=== PATIENT | female | born 1990 | race Caucasian/White ===

== ENCOUNTER 2016-07-15 18:19 | Emergency (ER) | payer BC ==
[2016-07-15] MEDS ORDERED: ONDANSETRON 4MG/2ML VIAL (J2405) As Ordered ONE (21:10)
[2016-07-15] MEDS ORDERED: KETOROLAC 30 MG/ML VIAL (J1885) As Ordered ONE (21:10)
[2016-07-15 21:54] LABS: BASO % 0.3 % (0.0-1.0); EOS % 0.3 % (0.0-3.0); LARGE UNSTAINED CELL # 0.2 K/mm3 (0.0-0.4); LARGE UNSTAINED CELL % 1.6 % (0.0-4.0); LYMPH # 2.5 K/mm3 (1.5-6.5); LYMPH % 24.1 % (24.0-44.0); MEAN CORPUSCULAR HEMOGLOBIN 24.9 pg (27.0-33.0); MEAN CORPUSCULAR HGB CONC 31.5 g/dl (32.0-36.5); MONO # 0.4 K/mm3 (0.0-0.8); MONO % 4.3 % (0.0-5.0); NEUTROPHILS % 69.3 % (36.0-66.0); PLATELET COUNT, AUTOMATED 341 k/mm3 (150-450); RED CELL DISTRIBUTION WIDTH 13.3 % (11.5-14.5); WHITE BLOOD COUNT 10.2 K/mm3 (4.0-10.0)
[2016-07-15 23:18] LABS: ALBUMIN 3.8 GM/DL (3.2-5.2); ALBUMIN/GLOBULIN RATIO 1.09 (1.00-1.93); ALKALINE PHOSPHATASE 73 U/L (45-117); ALT/SGPT 44 U/L (12-78); AMYLASE 20 U/L (25-115); ANION GAP 8 MEQ/L (8-16); AST/SGOT 34 U/L (15-37); BILIRUBIN,DIRECT 0.1 MG/DL (0.0-0.2); BILIRUBIN,TOTAL 0.4 MG/DL (0.2-1.0); BLOOD UREA NITROGEN 16 MG/DL (7-18); CALCIUM LEVEL 8.9 MG/DL (8.5-10.1); CARBON DIOXIDE LEVEL 29 MEQ/L (21-32); CHLORIDE LEVEL 105 MEQ/L (98-107); CREATININE FOR GFR 0.61 MG/DL (0.55-1.02); GLOMERULAR FILTRATION RATE > 60.0 (>60); GLUCOSE, FASTING 77 MG/DL (70-105); POTASSIUM SERUM 4.4 MEQ/L (3.5-5.1); SODIUM LEVEL 142 MEQ/L (136-145); TOTAL PROTEIN 7.3 GM/DL (6.4-8.2)
--- NOTE | 2016-07-15 23:40 | REPUSA ---
HISTORY: Biliary colic TECHNIQUE: Right upper quadrant ultrasound. COMPARISON: December 31, 2015. ULTRASOUND RUQ: Liver: No intrahepatic ductal dilation. Diffusely increased hepatic echotexture consistent with fatty infiltration. Gallbladder: Two mobile gallstones are noted. Normally distended and without wall thickening at 1.4 m m. Common bile duct: Nondistended at 4 mm. Pancreas: Poorly visualized due to overlying bowel gas. Right kidney: 10.8 x 6.1 x 5.3 cm. No stones or hydronephrosis. Aorta: Normal caliber. Peritoneum: No free fluid. IMPRESSION: 1. Cholelithiasis without ultrasound evidence of cholecystitis. 2. Fatty hepatic infiltration. 3. Findings are relatively stable compared to the December exam.
[2016-07-16] MEDS ORDERED: NORCO 5/325MG TABLET (BULK) As Ordered ONE (00:07)
--- NOTE | 2016-07-16 00:54 | EDDOCDS ---
Physician Documentation [facility] Name: Hawa Webster Age: 26 yrs Sex: Female : 1990 Arrival Date: 07/15/2016 Time: 18:19 Bed TR8 Private MD: No Pcp Disposition: 07/16/16 00:00 Discharged to Home/Self Care. Impression: Other cholelithiasis without obstruction - COLIC. - Condition is Stable. - Discharge Instructions: Biliary Colic, Cholelithiasis, Fat and Cholesterol Restricted Diet. - Prescriptions for Bentyl 20 mg Oral Tablet - take 1 tablet by ORAL route every 6 hours As needed; 20 tablet. [place] 5- 325 mg Oral Tablet - take 1 tablet by ORAL route every 6 hours As needed MDD: 4 tabs; 6 tablet. ZOFRAN ODT 4 mg - dissolve 1 tablet by ORAL route 4 times per day As needed do not chew, do not swallow whole; 10 tablet. - Medication Reconciliation, Local Pharmacy Hours, Work Release Form - 3 day form. - Follow up: Liban Howe MD; When: 2 - 3 days; Reason: Recheck today's complaints, Continuance of care. - Problem is new. - Symptoms have improved. - Notes: USE MEDICATIONS INSTRUCTED, FOLLOW UP WITH DR HOWE TOMORROW, FOLLOW LOW FAT DIET, HIGH PROTEIN GRILLED/BAKED FOOD DIET Historical: - Allergies: SULFA (SULFONAMIDES) (Upset stomach); - Home Meds: 1. omeprazole 20 mg Oral cpDR 1 cap once daily 2. Zyrtec 10 mg Oral cap 10 mg daily 3. Aleve 220 mg Oral tab 1 tab every 12 hours 4. Midol 500-25 mg oral tab daily - PMHx: GERD; Seasonal Allergies; - PSHx: none; - Social history: Smoking status: Patient/guardian denies using No barriers to communication noted, The patient speaks fluent [place]. - Family history: Not pertinent. - : The pt / caregiver states he / she is not on anticoagulants. Home medication list is obtained from [employer] import data. - Exposure Risk Screening:: None identified. 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 3 in. (160.02 cm) (R); 23:36 BP 146 / 70 LA Sitting (auto/reg); Pulse 70 MON; Resp 20 S; Temp 97.9(TE); Pulse Ox cln 100% on R/A; Pain 0/10; 18:20 Body Mass Index 58.46 (149.69 kg, 160.02 cm) dd6 MDM: 20:38 Undress patient appropriately for examination ordered. ck7 20:38 IV Saline Lock ordered. ck7 20:38 ketorolac 30 mg IVP once ordered. ck7 20:38 Ondansetron 4 mg IVP once ordered. ck7 20:38 NS 0.9% 1000 ml IV at bolus once ordered. ck7 20:38 UCG by Nursing ordered. ck7 20:39 NOTHING BY MOUTH+DIET ordered. EDMS 20:39 Amylase Ordered. EDMS 20:39 Basic Metabolic Profile Ordered. EDMS 20:39 CBC with Diff Ordered. EDMS 20:39 Lipase Ordered. EDMS 20:39 Liver Profile Ordered. EDMS 20:39 Urinalysis Ordered. EDMS 20:39 Urine Culture Ordered. EDMS 20:42 Gallbladder US Ordered. EDMS 22:34 CBC with Diff Reviewed. ck7 22:34 Urinalysis Reviewed. ck7 23:24 Amylase Reviewed. ck7 23:24 Basic Metabolic Profile Reviewed. ck7 23:24 Lipase Reviewed. ck7 23:24 Liver Profile Reviewed. ck7 23:43 Financial registration complete. zo 23:45 Gallbladder US Reviewed. ck7 07/16 00:02 HYDROcodone-acetaminophen 4 pack- 5 mg-325 mg 1 packets PO Per package directions; ck7 Dispense with patient. 1 po q4h prn for pain ordered. Point of Care Testing: Urine : 07/15 20:53 hCG Reading: Negative; Control Reading: Positive; [facility] Ranges: Administered Medications: 21:50 Drug: ketorolac 30 mg [ketorolac 30 mg/mL (1 mL) injection solution (1 mL)] Route: IVP; lf1 Site: left antecubital; 07/16 00:53 Follow up: Response: No Adverse Reaction; Pain is decreased [facility] 07/15 21:50 Drug: Ondansetron 4 mg [ondansetron HCl 2 mg/mL intravenous solution (2 mL)] Route: lf1 IVP; Site: left antecubital; 21:51 Drug: NS 0.9% 1000 ml [sodium chloride 0.9 % intravenous solution] Route: IV; Rate: lf1 bolus; Site: left antecubital; 07/16 00:53 Follow up: IV Status: Completed infusion; IV Intake: 1000ml [facility] 00:24 Drug: HYDROcodone-acetaminophen 4 pack- 1 packets [hydrocodone 5 mg-acetaminophen 325 h mg tablet (1 tabs)] {Co-Signature: lf1 (Lidia Bucio RN).} Route: PO; 00:52 Follow up: Response: Med's dispensed home [facility] Signatures: Dispatcher [employer] Danii Richardson, RN NINA [facility] Abril Albright Jane, RN RN [facility] Chris Sullivan, ORALIAC RPA-Cck7 Lidia Bucio RN lf1 Lidia Bucio RN 1 [facility]
--- NOTE | 2016-07-16 00:54 | EDDOCDS ---
Nurse's Notes [facility] Name: Hawa Webster Age: 26 yrs Sex: Female : 1990 Arrival Date: 07/15/2016 Time: 18:19 Bed TR8 Private MD: No Pcp Diagnosis: Other cholelithiasis without obstruction-COLIC Presentation: 07/15 18:23 Presenting complaint: Patient states: Pt presents with severe abdominal pain vomited dls twice this morning Pt is being evaluated by Dr Howe had a UGI last month has not gotten results yet. Sx have been ongoing for months. Risk factors: the patient reports no vaginal bleeding. Adult Sepsis Screening: The patient does not have new or worsening altered mentation. Patient's respiratory rate is less than 22. Systolic blood pressure is greater than 100. Patient has a qSOFA score of 0- Negative Sepsis Screen. Suicide/Homicide risk assessment- the patient denies having any suicidal and/or homicidal ideations and does not present with any other emotional, behavioral or mental health complaints. Status: Patient is not a equipment service lead or dependent. Transition of care: patient was not received from another setting of care. 18:23 Acuity: JANKI Level 4 dls 18:23 Method Of Arrival: Walkin/Carried/Asstd dls Triage Assessment: 18:27 General: Appears in no apparent distress, obese, well developed, Behavior is dls cooperative. Pain: Pain currently is 7 out of 10 on a pain scale. HIV screening NA for this visit Offered previously. GI: Reports lower abdominal pain, upper abd pain, vomiting. 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 omeprazole 20 mg Oral cpDR 1 cap once daily 2. Zyrtec 10 mg Oral cap 10 mg daily 3. Aleve 220 mg Oral tab 1 tab every 12 hours 4. Midol 500-25 mg oral tab daily - PMHx: GERD; Seasonal Allergies; - PSHx: none; - Social history: Smoking status: Patient/guardian denies using No barriers to communication noted, The patient speaks fluent Libyan. - Family history: Not pertinent. - : The pt / caregiver states he / she is not on anticoagulants. Home medication list is obtained from [employer] import data. - Exposure Risk Screening:: None identified. Screenin:55 Screening information is obtained from the patient. Fall risk: No risks identified. lf1 Assistance ADL's: requires no assistance with activities of daily living. 07/16 00:25 Abuse/DV Screen: The patient / caregiver reports he/she is: not in a situation that cjh causes fear, pain or injury. Nutritional screening: No deficits noted. Advance Directives: There is no active DNR order. home support is adequate. Assessment: 07/15 21:55 Adult Sepsis Screening: The patient does not have new or worsening altered mentation. lf1 Patient's respiratory rate is less than 22. Systolic blood pressure is greater than 100. Patient has a qSOFA score of 0- Negative Sepsis Screen. General: Appears in no apparent distress, Behavior is anxious, inappropriate for age, restless. Pain: Location: abdomen Pain began greater than six months ago. Neurological: Level of Consciousness is awake, alert. EENT: No deficits noted. Cardiovascular: No deficits noted. Respiratory: Respiratory effort is even, unlabored. GI: Abdomen is obese, Bowel sounds present X 4 quads. Reports lower abdominal pain, upper abd pain, nausea. : No deficits noted. Derm: Skin is normal. 23:31 General: Appears in no apparent distress, comfortable, Behavior is appropriate for age, cjh cooperative, resting quietly, states stomach feels better. Related questions to provider, will continue to monitor. 07/16 00:25 General: Appears in no apparent distress, comfortable, Behavior is appropriate for age, cjh cooperative, reviewed discharge instructions, encouraged and answered questions, offered reassurance and encouragement to follow up appropriately. Patient denies any new problems or complaints and declines offer of further assistance. GI: Abd is soft and non tender X 4 quads. Vital Signs: 07/15 18:20 BP 144 / 99; Pulse 94; Resp 18 S; Temp 96.7(O); Pulse Ox 100% on R/A; Weight 149.69 kg dd6 (R); Height 5 ft. 3 in. (160.02 cm) (R); 23:36 BP 146 / 70 LA Sitting (auto/reg); Pulse 70 MON; Resp 20 S; Temp 97.9(TE); Pulse Ox cln 100% on R/A; Pain 0/10; 18:20 Body Mass Index 58.46 (149.69 kg, 160.02 cm) dd6 Vitals: 18:20 Log In Time: July 15, 2016 at 18:18. dd6 ED Course: 18:20 Patient visited by Boogie Morataya PCA. dd6 18:20 No Pcp is Private Physician. dd6 18:20 Patient moved to Waiting dd6 18:21 Patient moved to Pre RCE dd6 18:25 Triage Initiated dls 20:02 Patient moved to Triage 3 ar3 20:16 Chris Sullivan RPA-C is PHCP. ck7 20:16 Lito Dhaliwal MD is Attending Physician. ck7 20:16 Patient visited by Chris Sullivan RPA-C. ck7 20:37 Patient moved to I b 20:49 Patient visited by Chris Sullivan RPA-C. ck7 21:15 Missed attempts: 20 gauge X 2. lf1 21:28 Patient moved to Ultrasound dmg 21:28 Amylase Sent. jmb 21:28 Basic Metabolic Profile Sent. jmb 21:28 CBC with Diff Sent. jmb 21:28 Lipase Sent. jmb 21:28 Liver Profile Sent. jmb 21:28 Inserted saline lock: 20 gauge in left antecubital area and blood collected. The [facility] patient tolerated the procedure well. 21:53 Patient visited by Lidia Bucio RN. lf1 21:55 The patient / caregiver is instructed regarding the plan of care and ED course. lf1 21:57 Patient visited by Lidia Bucio RN. lf1 21:59 Patient moved to I6 dmg 22:33 Patient visited by Chris Sullivan RPA-C. ck7 23:08 Patient visited by Chris Sullivan RPA-C. ck7 23:36 Patient visited by Dorota Mireles PCA. cln 23:44 Gallbladder US Returned. EDMS 23:59 Liban Howe MD is Referral Physician. ck7 07/16 00:25 [facility] Discontinued lock intact, bleeding controlled, pressure dressing applied, No cj redness/swelling at site. No procedures done that require assistance. Administered Medications: 07/15 21:50 Drug: ketorolac 30 mg [ketorolac 30 mg/mL (1 mL) injection solution (1 mL)] Route: IVP; lf1 Site: left antecubital; 07/16 00:53 Follow up: Response: No Adverse Reaction; Pain is decreased [facility] 07/15 21:50 Drug: Ondansetron 4 mg [ondansetron HCl 2 mg/mL intravenous solution (2 mL)] Route: lf1 IVP; Site: left antecubital; 21:51 Drug: NS 0.9% 1000 ml [sodium chloride 0.9 % intravenous solution] Route: IV; Rate: lf1 bolus; Site: left antecubital; 07/16 00:53 Follow up: IV Status: Completed infusion; IV Intake: 1000ml [facility] 00:24 Drug: HYDROcodone-acetaminophen 4 pack- 1 packets [hydrocodone 5 mg-acetaminophen 325 cjh mg tablet (1 tabs)] {Co-Signature: lf1 (Lidia Bucio RN).} Route: PO; 00:52 Follow up: Response: Med's dispensed home [facility] Point of Care Testing: Urine : 07/15 20:53 hCG Reading: Negative; Control Reading: Positive; [facility] Ranges: Intake: 07/16 00:53 IV: 1000.00ml; Total: 1000.00ml. [facility] Order Results: Lab Order: Amylase; SPEC'M 07/15/16 22:37 Test: AMYLASE; Value: 20; Range: 25-115; Abnormal: Below low normal; Units: U/L; Status: F Lab Order: Basic Metabolic Profile; SPEC'M 07/15/16 22:37 Test: GLUCOSE, FASTING; Value: 77; Range: 70-105; Units: MG/DL; Status: F Test: BLOOD UREA NITROGEN; Value: 16; Range: 7-18; Units: MG/DL; Status: F Test: CREATININE FOR GFR; Value: 0.61; Range: 0.55-1.02; Units: MG/DL; Status: F Test: GLOMERULAR FILTRATION RATE; Value: > 60.0; Range: >60; Status: F Test: SODIUM LEVEL; Value: 142; Range: 136-145; Units: MEQ/L; Status: F Test: POTASSIUM SERUM; Value: 4.4; Range: 3.5-5.1; Units: MEQ/L; Status: F Test: CHLORIDE LEVEL; Value: 105; Range: 98-107; Units: MEQ/L; Status: F Test: CARBON DIOXIDE LEVEL; Value: 29; Range: 21-32; Units: MEQ/L; Status: F Test: ANION GAP; Value: 8; Range: 8-16; Units: MEQ/L; Status: F Test: CALCIUM LEVEL; Value: 8.9; Range: 8.5-10.1; Units: MG/DL; Status: F Test Note: ; Units are mL/min/1.73 m2 Chronic Kidney Disease Staging per NKF: Stage I & II GFR >=60 Normal to Mildly Decreased Stage III GFR 30-59 Moderately Decreased Stage IV GFR 15-29 Severely Decreased Stage V GFR <15 Very Little GFR Left ESRD GFR <15 on STRETCHER LEVELER OPERATOR Lab Order: CBC with Diff; SPEC'M 07/15/16 21:25 Test: WHITE BLOOD COUNT; Value: 10.2; Range: 4.0-10.0; Abnormal: Above high normal; Units: K/mm3; Status: F Test: RED BLOOD COUNT; Value: 5.12; Range: 4.00-5.40; Units: M/mm3; Status: F Test: HEMOGLOBIN; Value: 12.7; Range: 12.0-16.0; Units: g/dl; Status: F Test: HEMATOCRIT; Value: 40.5; Range: 36.0-47.0; Units: %; Status: F Test: MEAN CORPUSCULAR VOLUME; Value: 79.0; Range: 80.0-96.0; Abnormal: Below low normal; Units: fl; Status: F Test: MEAN CORPUSCULAR HEMOGLOBIN; Value: 24.9; Range: 27.0-33.0; Abnormal: Below low normal; Units: pg; Status: F Test: MEAN CORPUSCULAR HGB CONC; Value: 31.5; Range: 32.0-36.5; Abnormal: Below low normal; Units: g/dl; Status: F Test: RED CELL DISTRIBUTION WIDTH; Value: 13.3; Range: 11.5-14.5; Units: %; Status: F Test: PLATELET COUNT, AUTOMATED; Value: 341; Range: 150-450; Units: k/mm3; Status: F Test: NEUTROPHILS %; Value: 69.3; Range: 36.0-66.0; Abnormal: Above high normal; Units: %; Status: F Test: LYMPH %; Value: 24.1; Range: 24.0-44.0; Units: %; Status: F Test: MONO %; Value: 4.3; Range: 0.0-5.0; Units: %; Status: F Test: EOS %; Value: 0.3; Range: 0.0-3.0; Units: %; Status: F Test: BASO %; Value: 0.3; Range: 0.0-1.0; Units: %; Status: F Test: LARGE UNSTAINED CELL %; Value: 1.6; Range: 0.0-4.0; Units: %; Status: F Test: NEUTROPHILS #; Value: 7.0; Range: 1.8-7.7; Units: K/mm3; Status: F Test: LYMPH #; Value: 2.5; Range: 1.5-6.5; Units: K/mm3; Status: F Test: MONO #; Value: 0.4; Range: 0.0-0.8; Units: K/mm3; Status: F Test: EOS #; Value: 0.0; Range: 0.0-0.50; Units: K/mm3; Status: F Test: BASO #; Value: 0.0; Range: 0.0-0.2; Units: K/mm3; Status: F Test: LARGE UNSTAINED CELL #; Value: 0.2; Range: 0.0-0.4; Units: K/mm3; Status: F Lab Order: Lipase; SPEC'M 07/15/16 22:37 Test: LIPASE; Value: 77; Range: 73-393; Units: U/L; Status: F Lab Order: Liver Profile; SPEC'M 07/15/16 22:37 Test: AST/SGOT; Value: 34; Range: 15-37; Units: U/L; Status: F Test: ALT/SGPT; Value: 44; Range: 12-78; Units: U/L; Status: F Test: ALKALINE PHOSPHATASE; Value: 73; Range: 45-117; Units: U/L; Status: F Test: BILIRUBIN,TOTAL; Value: 0.4; Range: 0.2-1.0; Units: MG/DL; Status: F Test: BILIRUBIN,DIRECT; Value: 0.1; Range: 0.0-0.2; Units: MG/DL; Status: F Test: TOTAL PROTEIN; Value: 7.3; Range: 6.4-8.2; Units: GM/DL; Status: F Test: ALBUMIN; Value: 3.8; Range: 3.2-5.2; Units: GM/DL; Status: F Test: ALBUMIN/GLOBULIN RATIO; Value: 1.09; Range: 1.00-1.93; Status: F Lab Order: Urinalysis; SPEC'M 07/15/16 20:53 Test: APPEARANCE, URINE; Value: HAZY; Range: CLEAR; Status: F Test: COLOR, URINE; Value: YELLOW; Range: YELLOW; Status: F Test: PH,URINE; Value: 5.0; Range: 5.0-9.0; Units: UNITS; Status: F Test: SPECIFIC GRAVITY URINE AUTO; Value: 1.027; Range: 1.002-1.035; Status: F Test: PROTEIN, URINE AUTO; Value: NEGATIVE; Range: NEGATIVE; Units: mg/dL; Status: F Test: GLUCOSE, URINE (UA) AUTO; Value: NEGATIVE; Range: NEGATIVE; Units: mg/dL; Status: F Test: KETONE, URINE AUTO; Value: NEGATIVE; Range: NEGATIVE; Units: mg/dL; Status: F Test: UROBILINOGEN, URINE AUTO; Value: 0.2; Range: 0.0-2.0; Units: mg/dL; Status: F Test: BILIRUBIN, URINE AUTO; Value: NEGATIVE; Range: NEGATIVE; Status: F Test: NITRITE, URINE AUTO; Value: NEGATIVE; Range: NEGATIVE; Status: F Test: LEUKOCYTE ESTERASE, URINE AUTO; Value: NEGATIVE; Range: NEGATIVE; Status: F Test: BLOOD, URINE BLOOD; Value: NEGATIVE; Range: NEGATIVE; Status: F Test: WBC, URINE AUTO; Value: 1; Range: 0-3; Units: /HPF; Status: F Test: RBC, URINE AUTO; Value: 1; Range: 0-3; Units: /HPF; Status: F Test: BACTERIA, URINE AUTO; Value: 1+; Range: NEGATIVE; Abnormal: Above high normal; Status: F Test: SQUAMOUS EPITHELIAL CELL UR AU; Value: 5; Range: 0-6; Units: /HPF; Status: F Test: MUCUS, URINE; Value: MODERATE; Range: NEGATIVE; Status: F Test: HYALINE CAST, URINE AUTO; Value: 0; Range: 0-1; Units: /LPF; Status: F Radiology Order: Gallbladder US Test: Gallbladder US REASON FOR EXAMINATION: Biliary Colic; ; HISTORY: Biliary colic; TECHNIQUE: Right upper quadrant ultrasound.; ; COMPARISON: December 31, 2015.; ; ULTRASOUND RUQ:; Liver: No intrahepatic ductal dilation. Diffusely increased hepatic echotexture consistent with fatty; infiltration.; Gallbladder: Two mobile gallstones are noted. Normally distended and without wall thickening at 1.4 m; m.; Common bile duct: Nondistended at 4 mm.; Pancreas: Poorly visualized due to overlying bowel gas.; Right kidney: 10.8 x 6.1 x 5.3 cm. No stones or hydronephrosis.; Aorta: Normal caliber.; Peritoneum: No free fluid.; IMPRESSION:; 1. Cholelithiasis without ultrasound evidence of cholecystitis.; 2. Fatty hepatic infiltration.; 3. Findings are relatively stable compared to the December exam.; ; Outcome: 00:00 Discharge ordered by Provider. ck7 00:25 Discharge Assessment: Patient awake, alert and oriented x 3. No cognitive and/or [facility] functional deficits noted. Patient verbalized understanding of disposition instructions. patient administered narcotics - yes. Pt provided with safe discharge. The following High Risk Discharge criteria are identified: None. Discharged to home ambulatory. Condition: good Condition: stable. Discharge instructions given to patient, Instructed on discharge instructions, follow up and referral plans. medication usage, no driving heavy equipment, no drinking with medication, Demonstrated understanding of instructions, medications, Pt was receptive of discharge instructions/ teaching. Prescriptions given X 3. Ultrasound Study completed. Property :Personal belongings accompany Pt. 00:53 Patient left the ED. [facility] Signatures: Dispatcher [employer] EDMS Danii Roberson RN RN dls Gunn, Deanne dmg Ford, Lisa, RN RN lf1 Boogie Morataya, RETREAD MOLD OPERATOR RETREAD MOLD OPERATOR dd6 Angela Teague, RETREAD MOLD OPERATOR RETREAD MOLD OPERATOR ar3 Lupe Abdi RN RN [facility] Chris Sullivan, RPA-C RPA-Cck7 Salvatore Brice,RN RN januszb Aline, Dorota, RETREAD MOLD OPERATOR RETREAD MOLD OPERATOR cln Lidia Bucio RN lf1 Corrections: (The following items were deleted from the chart) 07/15 21:53 21:51 Bladder Scan completed Results: 446 ML Pre void 20 ML Post Void lf1 lf1 MTDD
--- NOTE | 2016-07-18 01:54 | EDDOCDS ---
Physician Documentation [facility] Name: Hawa Webster Age: 26 yrs Sex: Female : 1990 Arrival Date: 07/15/2016 Time: 18:19 Bed TR8 Private MD: No Pcp Disposition: 07/16/16 00:00 Discharged to Home/Self Care. Impression: Other cholelithiasis without obstruction - COLIC. - Condition is Stable. - Discharge Instructions: Biliary Colic, Cholelithiasis, Fat and Cholesterol Restricted Diet. - Prescriptions for Bentyl 20 mg Oral Tablet - take 1 tablet by ORAL route every 6 hours As needed; 20 tablet. [place] 5- 325 mg Oral Tablet - take 1 tablet by ORAL route every 6 hours As needed MDD: 4 tabs; 6 tablet. ZOFRAN ODT 4 mg - dissolve 1 tablet by ORAL route 4 times per day As needed do not chew, do not swallow whole; 10 tablet. - Medication Reconciliation, Local Pharmacy Hours, Work Release Form - 3 day form. - Follow up: Liban Howe MD; When: 2 - 3 days; Reason: Recheck today's complaints, Continuance of care. - Problem is new. - Symptoms have improved. - Notes: USE MEDICATIONS INSTRUCTED, FOLLOW UP WITH DR HOWE TOMORROW, FOLLOW LOW FAT DIET, HIGH PROTEIN GRILLED/BAKED FOOD DIET Historical: - Allergies: SULFA (SULFONAMIDES) (Upset stomach); - Home Meds: 1. omeprazole 20 mg Oral cpDR 1 cap once daily 2. Zyrtec 10 mg Oral cap 10 mg daily 3. Aleve 220 mg Oral tab 1 tab every 12 hours 4. Midol 500-25 mg oral tab daily - PMHx: GERD; Seasonal Allergies; - PSHx: none; - Social history: Smoking status: Patient/guardian denies using No barriers to communication noted, The patient speaks fluent Northern Irish. - Family history: Not pertinent. - : The pt / caregiver states he / she is not on anticoagulants. Home medication list is obtained from [employer] import data. - Exposure Risk Screening:: None identified. 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 3 in. (160.02 cm) (R); 23:36 BP 146 / 70 LA Sitting (auto/reg); Pulse 70 MON; Resp 20 S; Temp 97.9(TE); Pulse Ox cln 100% on R/A; Pain 0/10; 18:20 Body Mass Index 58.46 (149.69 kg, 160.02 cm) dd6 MDM: 20:38 Undress patient appropriately for examination ordered. ck7 20:38 IV Saline Lock ordered. ck7 20:38 ketorolac 30 mg IVP once ordered. ck7 20:38 Ondansetron 4 mg IVP once ordered. ck7 20:38 NS 0.9% 1000 ml IV at bolus once ordered. ck7 20:38 UCG by Nursing ordered. ck7 20:39 NOTHING BY MOUTH+DIET ordered. EDMS 20:39 Amylase Ordered. EDMS 20:39 Basic Metabolic Profile Ordered. EDMS 20:39 CBC with Diff Ordered. EDMS 20:39 Lipase Ordered. EDMS 20:39 Liver Profile Ordered. EDMS 20:39 Urinalysis Ordered. EDMS 20:39 Urine Culture Ordered. EDMS 20:42 Gallbladder US Ordered. EDMS 22:34 CBC with Diff Reviewed. ck7 22:34 Urinalysis Reviewed. ck7 23:24 Amylase Reviewed. ck7 23:24 Basic Metabolic Profile Reviewed. ck7 23:24 Lipase Reviewed. ck7 23:24 Liver Profile Reviewed. ck7 23:43 Financial registration complete. zo 23:45 Gallbladder US Reviewed. ck7 07/16 00:02 HYDROcodone-acetaminophen 4 pack- 5 mg-325 mg 1 packets PO Per package directions; ck7 Dispense with patient. 1 po q4h prn for pain ordered. 03:10 [facility] [place] Payment Agreement was scanned into [employer] and attached to record. hs2 04:44 T-Sheet-- Draft Copy was scanned into [employer] and attached to record. lja 10:50 Radiology Report was scanned into [employer] and attached to record. gb Point of Care Testing: Urine : 07/15 20:53 hCG Reading: Negative; Control Reading: Positive; [facility] Ranges: Administered Medications: 21:50 Drug: ketorolac 30 mg [ketorolac 30 mg/mL (1 mL) injection solution (1 mL)] Route: IVP; lf1 Site: left antecubital; 07/16 00:53 Follow up: Response: No Adverse Reaction; Pain is decreased [facility] 07/15 21:50 Drug: Ondansetron 4 mg [ondansetron HCl 2 mg/mL intravenous solution (2 mL)] Route: lf1 IVP; Site: left antecubital; 21:51 Drug: NS 0.9% 1000 ml [sodium chloride 0.9 % intravenous solution] Route: IV; Rate: lf1 bolus; Site: left antecubital; 07/16 00:53 Follow up: IV Status: Completed infusion; IV Intake: 1000ml [facility] 00:24 Drug: HYDROcodone-acetaminophen 4 pack- 1 packets [hydrocodone 5 mg-acetaminophen 325 cjh mg tablet (1 tabs)] {Co-Signature: lf1 (Lidia Bucio RN).} Route: PO; 00:52 Follow up: Response: Med's dispensed home [facility] Signatures: Dispatcher [employer] EDMS Danii Roberson, RN RN [facility] Geeta Jaimes, Reg Reg gb Abril Albright Jane, RN RN [facility] Chris Sullivan, RPA-C RPA-Cck7 Arel, Adina Naranjo, Reg Reg hs2 Lidia Bucio RN lf1 Lidia Bucio RN lf1 The chart was reviewed and I authenticate all verbal orders and agree with the evaluation and treatment provided.Attachments: 03:10 [facility] Payment Agreement hs2 04:44 T-Sheet-- Draft Copy monica Chart Complete [facility]
--- NOTE | 2016-07-18 01:54 | EDDOCDS ---
Nurse's Notes [facility] Name: Hawa Webster Age: 26 yrs Sex: Female : 1990 Arrival Date: 07/15/2016 Time: 18:19 Bed TR8 Private MD: No Pcp Diagnosis: Other cholelithiasis without obstruction-COLIC Presentation: 07/15 18:23 Presenting complaint: Patient states: Pt presents with severe abdominal pain vomited dls twice this morning Pt is being evaluated by Dr Howe had a UGI last month has not gotten results yet. Sx have been ongoing for months. Risk factors: the patient reports no vaginal bleeding. Adult Sepsis Screening: The patient does not have new or worsening altered mentation. Patient's respiratory rate is less than 22. Systolic blood pressure is greater than 100. Patient has a qSOFA score of 0- Negative Sepsis Screen. Suicide/Homicide risk assessment- the patient denies having any suicidal and/or homicidal ideations and does not present with any other emotional, behavioral or mental health complaints. 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 Transition of care: patient was not received from another setting of care. 18:23 Acuity: JANKI Level 4 dls 18:23 Method Of Arrival: Walkin/Carried/Asstd dls Triage Assessment: 18:27 General: Appears in no apparent distress, obese, well developed, Behavior is dls cooperative. Pain: Pain currently is 7 out of 10 on a pain scale. HIV screening NA for this visit Offered previously. GI: Reports lower abdominal pain, upper abd pain, vomiting. 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 omeprazole 20 mg Oral cpDR 1 cap once daily 2. Zyrtec 10 mg Oral cap 10 mg daily 3. Aleve 220 mg Oral tab 1 tab every 12 hours 4. Midol 500-25 mg oral tab daily - PMHx: GERD; Seasonal Allergies; - PSHx: none; - Social history: Smoking status: Patient/guardian denies using No barriers to communication noted, The patient speaks fluent Beninese. - Family history: Not pertinent. - : The pt / caregiver states he / she is not on anticoagulants. Home medication list is obtained from [employer] import data. - Exposure Risk Screening:: None identified. Screenin:55 Screening information is obtained from the patient. Fall risk: No risks identified. lf1 Assistance ADL's: requires no assistance with activities of daily living. 07/16 00:25 Abuse/DV Screen: The patient / caregiver reports he/she is: not in a situation that cjh causes fear, pain or injury. Nutritional screening: No deficits noted. Advance Directives: There is no active DNR order. home support is adequate. Assessment: 07/15 21:55 Adult Sepsis Screening: The patient does not have new or worsening altered mentation. lf1 Patient's respiratory rate is less than 22. Systolic blood pressure is greater than 100. Patient has a qSOFA score of 0- Negative Sepsis Screen. General: Appears in no apparent distress, Behavior is anxious, inappropriate for age, restless. Pain: Location: abdomen Pain began greater than six months ago. Neurological: Level of Consciousness is awake, alert. EENT: No deficits noted. Cardiovascular: No deficits noted. Respiratory: Respiratory effort is even, unlabored. GI: Abdomen is obese, Bowel sounds present X 4 quads. Reports lower abdominal pain, upper abd pain, nausea. : No deficits noted. Derm: Skin is normal. 23:31 General: Appears in no apparent distress, comfortable, Behavior is appropriate for age, cjh cooperative, resting quietly, states stomach feels better. Related questions to provider, will continue to monitor. 07/16 00:25 General: Appears in no apparent distress, comfortable, Behavior is appropriate for age, cjh cooperative, reviewed discharge instructions, encouraged and answered questions, offered reassurance and encouragement to follow up appropriately. Patient denies any new problems or complaints and declines offer of further assistance. GI: Abd is soft and non tender X 4 quads. Vital Signs: 07/15 18:20 BP 144 / 99; Pulse 94; Resp 18 S; Temp 96.7(O); Pulse Ox 100% on R/A; Weight 149.69 kg dd6 (R); Height 5 ft. 3 in. (160.02 cm) (R); 23:36 BP 146 / 70 LA Sitting (auto/reg); Pulse 70 MON; Resp 20 S; Temp 97.9(TE); Pulse Ox cln 100% on R/A; Pain 0/10; 18:20 Body Mass Index 58.46 (149.69 kg, 160.02 cm) dd6 Vitals: 18:20 Log In Time: July 15, 2016 at 18:18. dd6 ED Course: 18:20 Patient visited by Boogie Morataya PCA. dd6 18:20 No Pcp is Private Physician. dd6 18:20 Patient moved to Waiting dd6 18:21 Patient moved to Pre RCE dd6 18:25 Triage Initiated dls 20:02 Patient moved to Triage 3 ar3 20:16 Chris Sullivan RPA-C is PHCP. ck7 20:16 Lito Dhaliwal MD is Attending Physician. ck7 20:16 Patient visited by Chris Sullivan RPA-C. ck7 20:37 Patient moved to I / b 20:49 Patient visited by Chris Sullivan RPA-C. ck7 21:15 Missed attempts: 20 gauge X 2. lf1 21:28 Patient moved to Ultrasound dmg 21:28 Amylase Sent. jmb 21:28 Basic Metabolic Profile Sent. jmb 21:28 CBC with Diff Sent. jmb 21:28 Lipase Sent. jmb 21:28 Liver Profile Sent. jmb 21:28 Inserted saline lock: 20 gauge in left antecubital area and blood collected. The [facility] patient tolerated the procedure well. 21:53 Patient visited by Lidia Bucio RN. lf1 21:55 The patient / caregiver is instructed regarding the plan of care and ED course. lf1 21:57 Patient visited by Lidia Bucio RN. lf1 21:59 Patient moved to I6 / dmg 22:33 Patient visited by Chris Sullivan RPA-C. ck7 23:08 Patient visited by Chris Sullivan RPA-C. ck7 23:36 Patient visited by Dorota Mireles PCA. cln 23:44 Gallbladder US Returned. EDMS 23:59 Liban Howe MD is Referral Physician. ck7 07/16 00:25 [facility] Discontinued lock intact, bleeding controlled, pressure dressing applied, No cjh redness/swelling at site. No procedures done that require assistance. 03:10 Patient visited by Adina Ayala, Reg. hs2 03:10 [facility] Payment Agreement was scanned into [employer] and attached to record. hs2 04:44 T-Sheet-- Draft Copy was scanned into [employer] and attached to record. lja 10:50 Radiology Report was scanned into [employer] and attached to record. gb Administered Medications: 07/15 21:50 Drug: ketorolac 30 mg [ketorolac 30 mg/mL (1 mL) injection solution (1 mL)] Route: IVP; lf1 Site: left antecubital; 07/16 00:53 Follow up: Response: No Adverse Reaction; Pain is decreased [facility] 07/15 21:50 Drug: Ondansetron 4 mg [ondansetron HCl 2 mg/mL intravenous solution (2 mL)] Route: lf1 IVP; Site: left antecubital; 21:51 Drug: NS 0.9% 1000 ml [sodium chloride 0.9 % intravenous solution] Route: IV; Rate: lf1 bolus; Site: left antecubital; 07/16 00:53 Follow up: IV Status: Completed infusion; IV Intake: 1000ml [facility] 00:24 Drug: HYDROcodone-acetaminophen 4 pack- 1 packets [hydrocodone 5 mg-acetaminophen 325 cjh mg tablet (1 tabs)] {Co-Signature: lf1 (Lidia Bucio RN).} Route: PO; 00:52 Follow up: Response: Med's dispensed home [facility] Point of Care Testing: Urine : 07/15 20:53 hCG Reading: Negative; Control Reading: Positive; [facility] Ranges: Intake: 07/16 00:53 IV: 1000.00ml; Total: 1000.00ml. [facility] Order Results: Lab Order: Amylase; SPEC'M 07/15/16 22:37 Test: AMYLASE; Value: 20; Range: 25-115; Abnormal: Below low normal; Units: U/L; Status: F Lab Order: Basic Metabolic Profile; SPEC'M 07/15/16 22:37 Test: GLUCOSE, FASTING; Value: 77; Range: 70-105; Units: MG/DL; Status: F Test: BLOOD UREA NITROGEN; Value: 16; Range: 7-18; Units: MG/DL; Status: F Test: CREATININE FOR GFR; Value: 0.61; Range: 0.55-1.02; Units: MG/DL; Status: F Test: GLOMERULAR FILTRATION RATE; Value: > 60.0; Range: >60; Status: F Test: SODIUM LEVEL; Value: 142; Range: 136-145; Units: MEQ/L; Status: F Test: POTASSIUM SERUM; Value: 4.4; Range: 3.5-5.1; Units: MEQ/L; Status: F Test: CHLORIDE LEVEL; Value: 105; Range: 98-107; Units: MEQ/L; Status: F Test: CARBON DIOXIDE LEVEL; Value: 29; Range: 21-32; Units: MEQ/L; Status: F Test: ANION GAP; Value: 8; Range: 8-16; Units: MEQ/L; Status: F Test: CALCIUM LEVEL; Value: 8.9; Range: 8.5-10.1; Units: MG/DL; Status: F Test Note: ; Units are mL/min/1.73 m2 Chronic Kidney Disease Staging per NKF: Stage I & II GFR >=60 Normal to Mildly Decreased Stage III GFR 30-59 Moderately Decreased Stage IV GFR 15-29 Severely Decreased Stage V GFR <15 Very Little GFR Left ESRD GFR <15 on TITLE ATTORNEY Lab Order: CBC with Diff; SPEC'M 07/15/16 21:25 Test: WHITE BLOOD COUNT; Value: 10.2; Range: 4.0-10.0; Abnormal: Above high normal; Units: K/mm3; Status: F Test: RED BLOOD COUNT; Value: 5.12; Range: 4.00-5.40; Units: M/mm3; Status: F Test: HEMOGLOBIN; Value: 12.7; Range: 12.0-16.0; Units: g/dl; Status: F Test: HEMATOCRIT; Value: 40.5; Range: 36.0-47.0; Units: %; Status: F Test: MEAN CORPUSCULAR VOLUME; Value: 79.0; Range: 80.0-96.0; Abnormal: Below low normal; Units: fl; Status: F Test: MEAN CORPUSCULAR HEMOGLOBIN; Value: 24.9; Range: 27.0-33.0; Abnormal: Below low normal; Units: pg; Status: F Test: MEAN CORPUSCULAR HGB CONC; Value: 31.5; Range: 32.0-36.5; Abnormal: Below low normal; Units: g/dl; Status: F Test: RED CELL DISTRIBUTION WIDTH; Value: 13.3; Range: 11.5-14.5; Units: %; Status: F Test: PLATELET COUNT, AUTOMATED; Value: 341; Range: 150-450; Units: k/mm3; Status: F Test: NEUTROPHILS %; Value: 69.3; Range: 36.0-66.0; Abnormal: Above high normal; Units: %; Status: F Test: LYMPH %; Value: 24.1; Range: 24.0-44.0; Units: %; Status: F Test: MONO %; Value: 4.3; Range: 0.0-5.0; Units: %; Status: F Test: EOS %; Value: 0.3; Range: 0.0-3.0; Units: %; Status: F Test: BASO %; Value: 0.3; Range: 0.0-1.0; Units: %; Status: F Test: LARGE UNSTAINED CELL %; Value: 1.6; Range: 0.0-4.0; Units: %; Status: F Test: NEUTROPHILS #; Value: 7.0; Range: 1.8-7.7; Units: K/mm3; Status: F Test: LYMPH #; Value: 2.5; Range: 1.5-6.5; Units: K/mm3; Status: F Test: MONO #; Value: 0.4; Range: 0.0-0.8; Units: K/mm3; Status: F Test: EOS #; Value: 0.0; Range: 0.0-0.50; Units: K/mm3; Status: F Test: BASO #; Value: 0.0; Range: 0.0-0.2; Units: K/mm3; Status: F Test: LARGE UNSTAINED CELL #; Value: 0.2; Range: 0.0-0.4; Units: K/mm3; Status: F Lab Order: Lipase; SPEC'M 07/15/16 22:37 Test: LIPASE; Value: 77; Range: 73-393; Units: U/L; Status: F Lab Order: Liver Profile; SPEC'M 07/15/16 22:37 Test: AST/SGOT; Value: 34; Range: 15-37; Units: U/L; Status: F Test: ALT/SGPT; Value: 44; Range: 12-78; Units: U/L; Status: F Test: ALKALINE PHOSPHATASE; Value: 73; Range: 45-117; Units: U/L; Status: F Test: BILIRUBIN,TOTAL; Value: 0.4; Range: 0.2-1.0; Units: MG/DL; Status: F Test: BILIRUBIN,DIRECT; Value: 0.1; Range: 0.0-0.2; Units: MG/DL; Status: F Test: TOTAL PROTEIN; Value: 7.3; Range: 6.4-8.2; Units: GM/DL; Status: F Test: ALBUMIN; Value: 3.8; Range: 3.2-5.2; Units: GM/DL; Status: F Test: ALBUMIN/GLOBULIN RATIO; Value: 1.09; Range: 1.00-1.93; Status: F Lab Order: Urinalysis; SPEC'M 07/15/16 20:53 Test: APPEARANCE, URINE; Value: HAZY; Range: CLEAR; Status: F Test: COLOR, URINE; Value: YELLOW; Range: YELLOW; Status: F Test: PH,URINE; Value: 5.0; Range: 5.0-9.0; Units: UNITS; Status: F Test: SPECIFIC GRAVITY URINE AUTO; Value: 1.027; Range: 1.002-1.035; Status: F Test: PROTEIN, URINE AUTO; Value: NEGATIVE; Range: NEGATIVE; Units: mg/dL; Status: F Test: GLUCOSE, URINE (UA) AUTO; Value: NEGATIVE; Range: NEGATIVE; Units: mg/dL; Status: F Test: KETONE, URINE AUTO; Value: NEGATIVE; Range: NEGATIVE; Units: mg/dL; Status: F Test: UROBILINOGEN, URINE AUTO; Value: 0.2; Range: 0.0-2.0; Units: mg/dL; Status: F Test: BILIRUBIN, URINE AUTO; Value: NEGATIVE; Range: NEGATIVE; Status: F Test: NITRITE, URINE AUTO; Value: NEGATIVE; Range: NEGATIVE; Status: F Test: LEUKOCYTE ESTERASE, URINE AUTO; Value: NEGATIVE; Range: NEGATIVE; Status: F Test: BLOOD, URINE BLOOD; Value: NEGATIVE; Range: NEGATIVE; Status: F Test: WBC, URINE AUTO; Value: 1; Range: 0-3; Units: /HPF; Status: F Test: RBC, URINE AUTO; Value: 1; Range: 0-3; Units: /HPF; Status: F Test: BACTERIA, URINE AUTO; Value: 1+; Range: NEGATIVE; Abnormal: Above high normal; Status: F Test: SQUAMOUS EPITHELIAL CELL UR AU; Value: 5; Range: 0-6; Units: /HPF; Status: F Test: MUCUS, URINE; Value: MODERATE; Range: NEGATIVE; Status: F Test: HYALINE CAST, URINE AUTO; Value: 0; Range: 0-1; Units: /LPF; Status: F Lab Order: Urine Culture; SPEC'M 07/15/16 20:53 Test: URINE CULTURE; Value: URINE CULTURE RESULT SPECIMEN APPEARS CONTAMINATED; Status: F Radiology Order: Gallbladder US Test: Gallbladder US REASON FOR EXAMINATION: Biliary Colic; ; HISTORY: Biliary colic; TECHNIQUE: Right upper quadrant ultrasound.; ; COMPARISON: December 31, 2015.; ; ULTRASOUND RUQ:; Liver: No intrahepatic ductal dilation. Diffusely increased hepatic echotexture consistent with fatty; infiltration.; Gallbladder: Two mobile gallstones are noted. Normally distended and without wall thickening at 1.4 m; m.; Common bile duct: Nondistended at 4 mm.; Pancreas: Poorly visualized due to overlying bowel gas.; Right kidney: 10.8 x 6.1 x 5.3 cm. No stones or hydronephrosis.; Aorta: Normal caliber.; Peritoneum: No free fluid.; IMPRESSION:; 1. Cholelithiasis without ultrasound evidence of cholecystitis.; 2. Fatty hepatic infiltration.; 3. Findings are relatively stable compared to the December exam.; ; Outcome: 00:00 Discharge ordered by Provider. ck7 00:25 Discharge Assessment: Patient awake, alert and oriented x 3. No cognitive and/or cjh functional deficits noted. Patient verbalized understanding of disposition instructions. patient administered narcotics - yes. Pt provided with safe discharge. The following High Risk Discharge criteria are identified: None. Discharged to home ambulatory. Condition: good Condition: stable. Discharge instructions given to patient, Instructed on discharge instructions, follow up and referral plans. medication usage, no driving heavy equipment, no drinking with medication, Demonstrated understanding of instructions, medications, Pt was receptive of discharge instructions/ teaching. Prescriptions given X 3. Ultrasound Study completed. Property :Personal belongings accompany Pt. 00:53 Patient left the ED. [facility] Signatures: Dispatcher [employer] EDDanii Mims, RN RN Tiffany Lutz Geeta Gamboa, Reg Reg gb Lidia BucioRN RN lf1 Boogie Morataya, CENSUS ENUMERATOR CENSUS ENUMERATOR dd6 Angela Teague, CENSUS ENUMERATOR CENSUS ENUMERATOR ar3 Lupe AbdiRN RN [facility] Chris Sullivan, RPA-C RPA-Cck7 Salvatore BriceRN RN jmb Maria Del Carmen, Adina Naranjo, Reg Reg hs2 Dorota Mireles, CENSUS ENUMERATOR CENSUS ENUMERATOR cln Lidia Bucio RN lf1 Corrections: (The following items were deleted from the chart) 07/15 21:53 21:51 Bladder Scan completed Results: 446 ML Pre void 20 ML Post Void lf1 lf1 [facility]
--- NOTE | 2016-07-18 01:54 | EDDOCDS ---
Physician Documentation [facility] Name: Hawa Webster Age: 26 yrs Sex: Female : 1990 Arrival Date: 07/15/2016 Time: 18:19 Bed TR8 Private MD: No Pcp Disposition: 07/16/16 00:00 Discharged to Home/Self Care. Impression: Other cholelithiasis without obstruction - COLIC. - Condition is Stable. - Discharge Instructions: Biliary Colic, Cholelithiasis, Fat and Cholesterol Restricted Diet. - Prescriptions for Bentyl 20 mg Oral Tablet - take 1 tablet by ORAL route every 6 hours As needed; 20 tablet. [place] 5- 325 mg Oral Tablet - take 1 tablet by ORAL route every 6 hours As needed MDD: 4 tabs; 6 tablet. ZOFRAN ODT 4 mg - dissolve 1 tablet by ORAL route 4 times per day As needed do not chew, do not swallow whole; 10 tablet. - Medication Reconciliation, Local Pharmacy Hours, Work Release Form - 3 day form. - Follow up: Liban Howe MD; When: 2 - 3 days; Reason: Recheck today's complaints, Continuance of care. - Problem is new. - Symptoms have improved. - Notes: USE MEDICATIONS INSTRUCTED, FOLLOW UP WITH DR HOWE TOMORROW, FOLLOW LOW FAT DIET, HIGH PROTEIN GRILLED/BAKED FOOD DIET Historical: - Allergies: SULFA (SULFONAMIDES) (Upset stomach); - Home Meds: 1. omeprazole 20 mg Oral cpDR 1 cap once daily 2. Zyrtec 10 mg Oral cap 10 mg daily 3. Aleve 220 mg Oral tab 1 tab every 12 hours 4. Midol 500-25 mg oral tab daily - PMHx: GERD; Seasonal Allergies; - PSHx: none; - Social history: Smoking status: Patient/guardian denies using No barriers to communication noted, The patient speaks fluent Vincentian. - Family history: Not pertinent. - : The pt / caregiver states he / she is not on anticoagulants. Home medication list is obtained from [employer] import data. - Exposure Risk Screening:: None identified. 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 3 in. (160.02 cm) (R); 23:36 BP 146 / 70 LA Sitting (auto/reg); Pulse 70 MON; Resp 20 S; Temp 97.9(TE); Pulse Ox cln 100% on R/A; Pain 0/10; 18:20 Body Mass Index 58.46 (149.69 kg, 160.02 cm) dd6 MDM: 20:38 Undress patient appropriately for examination ordered. ck7 20:38 IV Saline Lock ordered. ck7 20:38 ketorolac 30 mg IVP once ordered. ck7 20:38 Ondansetron 4 mg IVP once ordered. ck7 20:38 NS 0.9% 1000 ml IV at bolus once ordered. ck7 20:38 UCG by Nursing ordered. ck7 20:39 NOTHING BY MOUTH+DIET ordered. EDMS 20:39 Amylase Ordered. EDMS 20:39 Basic Metabolic Profile Ordered. EDMS 20:39 CBC with Diff Ordered. EDMS 20:39 Lipase Ordered. EDMS 20:39 Liver Profile Ordered. EDMS 20:39 Urinalysis Ordered. EDMS 20:39 Urine Culture Ordered. EDMS 20:42 Gallbladder US Ordered. EDMS 22:34 CBC with Diff Reviewed. ck7 22:34 Urinalysis Reviewed. ck7 23:24 Amylase Reviewed. ck7 23:24 Basic Metabolic Profile Reviewed. ck7 23:24 Lipase Reviewed. ck7 23:24 Liver Profile Reviewed. ck7 23:43 Financial registration complete. zo 23:45 Gallbladder US Reviewed. ck7 07/16 00:02 HYDROcodone-acetaminophen 4 pack- 5 mg-325 mg 1 packets PO Per package directions; ck7 Dispense with patient. 1 po q4h prn for pain ordered. 03:10 [facility] [place] Payment Agreement was scanned into [employer] and attached to record. hs2 04:44 T-Sheet-- Draft Copy was scanned into [employer] and attached to record. lja 10:50 Radiology Report was scanned into [employer] and attached to record. gb Point of Care Testing: Urine : 07/15 20:53 hCG Reading: Negative; Control Reading: Positive; [facility] Ranges: Administered Medications: 21:50 Drug: ketorolac 30 mg [ketorolac 30 mg/mL (1 mL) injection solution (1 mL)] Route: IVP; lf1 Site: left antecubital; 07/16 00:53 Follow up: Response: No Adverse Reaction; Pain is decreased [facility] 07/15 21:50 Drug: Ondansetron 4 mg [ondansetron HCl 2 mg/mL intravenous solution (2 mL)] Route: lf1 IVP; Site: left antecubital; 21:51 Drug: NS 0.9% 1000 ml [sodium chloride 0.9 % intravenous solution] Route: IV; Rate: lf1 bolus; Site: left antecubital; 07/16 00:53 Follow up: IV Status: Completed infusion; IV Intake: 1000ml [facility] 00:24 Drug: HYDROcodone-acetaminophen 4 pack- 1 packets [hydrocodone 5 mg-acetaminophen 325 cjh mg tablet (1 tabs)] {Co-Signature: lf1 (Lidia Bucio RN).} Route: PO; 00:52 Follow up: Response: Med's dispensed home [facility] Signatures: Dispatcher [employer] EDMS Danii Roberson, RN RN [facility] Geeta Jaimes, Reg Reg gb Abril Albright Jane, RN RN [facility] Chris Sullivan, RPA-C RPA-Cck7 Arel, Adina Naranjo, Reg Reg hs2 Lidia Bucio RN lf1 Lidia Bucio RN lf1 The chart was reviewed and I authenticate all verbal orders and agree with the evaluation and treatment provided.Attachments: 03:10 [facility] Payment Agreement hs2 04:44 T-Sheet-- Draft Copy monica Chart Complete [facility]
== END 2016-07-16 00:53 | disposition home or self-care (01) ==
LOC: M ED 18:19
DX: K80.20 Calculus of gallbladder without cholecystitis without obstruction (principal); K76.0 Fatty (change of) liver, not elsewhere classified; K21.9 Gastro-esophageal reflux disease without esophagitis; J30.9 Allergic rhinitis, unspecified; Z79.1 Long term (current) use of non-steroidal anti-inflammatories (NSAID); Z79.899 Other long term (current) drug therapy; Z88.2 Allergy status to sulfonamides
CPT/HCPCS: 36415; 76705; 80048; 80076; 81001; 81025; 82150; 83690; 85025; 87086; 96361; 96374; 96375; 99284; J1885; J2405

== ENCOUNTER → 2016-08-08 | Outpatient (CLI) | payer BC ==
[~2016-08-08] MED LIST: LORT5TAB PO
--- NOTE | 2016-08-08 11:05 | REP ---
Hepatobiliary scan and gallbladder ejection fraction: History: Right upper quadrant pain. Technique: 6.5 mCi of technetium-99m mebrofenin was injected and sequential anterior images are acquired. 65 minutes after the mebrofenin injection, the patient consumed 8 ounces Ensure and an additional 60 minutes of imaging was acquired. Regions of interest are plotted around the gallbladder. Findings: The initial hepatocellular parenchymal uptake phase is normal and homogeneous. Intra- and extra-hepatic bile ducts and duodenum are labeled by the 15 -minute image. The gallbladder is first labeled on the 10 -minute image. There is normal washout from the liver parenchyma into the gallbladder and small intestine on subsequent images. The gallbladder ejection fraction is normal at six %. Values greater than 35 % are considered normal with this technique. Impression: Normal hepatobiliary scan and decreased gallbladder ejection fraction. Signed by Reyes Floyd MD 08/08/2016 10:57 A
== END ==
LOC: M RAD 08:06
PROVIDERS: ATTEND Surgery
DX: R10.11 Right upper quadrant pain (principal)

== ENCOUNTER → 2016-08-22 | Outpatient (CLI) | payer BC ==
[~2016-08-22] VITALS: Ht 160 cm; Wt 149.7 kg
[~2016-08-22] MED LIST changes: +ALEV220C2 PO; +LIDOCAINE VISCOUS 2% SOLN 15ML UDC As Ordered ONE; +MIDAZOLAM INJ 2 MG/2 ML VIAL (J2250) As Ordered ONE; +NS 1,000 ML IV SCH; +OMEP40CA2 PO; +SUCR1TA PO; +ZYRT10CA PO
--- NOTE | 2016-08-22 11:53 | ROOR ---
Patient Name: Hawa Webster Procedure Date: 08/22/2016 11:05 AM Date of : 1990 Age: 26 Room: [facility] Gender: Female Note Status: Finalized Procedure: Upper GI endoscopy Indications: Epigastric abdominal pain, Suspected esophageal reflux Providers: Liban Howe Jr, MD Referring MD: Liban Howe Jr, MD Requesting Provider: Medicines: Propofol per Anesthesia Complications: No immediate complications. Procedure: Pre-Anesthesia Assessment: - Prior to the procedure, a History and Physical was performed, and patient medications and allergies were reviewed. The patient is competent. The risks and benefits of the procedure and the sedation options and risks were discussed with the patient. All questions were answered and informed consent was obtained. Patient identification and proposed procedure were verified by the physician and the nurse in the pre-procedure area and in the procedure room. Mental Status Examination: alert and oriented. Airway Examination: normal oropharyngeal airway and neck mobility. Respiratory Examination: clear to auscultation. CV Examination: normal. ASA Grade Assessment: II - A patient with mild systemic disease. After reviewing the risks and benefits, the patient was deemed in satisfactory condition to undergo the procedure. The anesthesia plan was to use moderate sedation / analgesia (conscious sedation). Immediately prior to administration of medications, the patient was re-assessed for adequacy to receive sedatives. The heart rate, respiratory rate, oxygen saturations, blood pressure, adequacy of pulmonary ventilation, and response to care were monitored throughout the procedure. The physical status of the patient was re-assessed after the procedure. The Endoscope was introduced through the mouth, and advanced to the second part of duodenum. The upper GI endoscopy was accomplished without difficulty. The patient tolerated the procedure well. Findings: The upper third of the esophagus, middle third of the esophagus and lower third of the esophagus were normal. The gastroesophageal junction, cardia, gastric fundus, gastric body, gastric antrum and pylorus were normal. The duodenal bulb, first portion of the duodenum and second portion of the duodenum were normal. The prepyloric region of the stomach was normal. Biopsies were taken with a cold forceps for histology. Impression: - Normal upper third of esophagus, middle third of esophagus and lower third of esophagus. - Normal gastroesophageal junction, cardia, gastric fundus, gastric body, antrum and pylorus. - Normal duodenal bulb, first portion of the duodenum and second portion of the duodenum. - Normal prepyloric region of the stomach. Biopsied. Recommendation: - Discharge patient to home (ambulatory). - Return to my office in 2 weeks. Liban Howe MD Liban Howe Jr, MD 08/22/2016 11:52:56 AM This report has been signed electronically. Number of Addenda: 0 Note Initiated On: 08/22/2016 11:05 AM Estimated Blood Loss: Estimated blood loss: none.
[2016-08-22 12:20] VITALS: BP 110/57
== END ==
LOC: M OPP 10:27
PROVIDERS: ATTEND Surgery
DX: K29.50 Unspecified chronic gastritis without bleeding (principal); K80.20 Calculus of gallbladder without cholecystitis without obstruction; J45.909 Unspecified asthma, uncomplicated; R06.83 Snoring; L40.9 Psoriasis, unspecified; F33.9 Major depressive disorder, recurrent, unspecified; F41.9 Anxiety disorder, unspecified; E66.2 Morbid (severe) obesity with alveolar hypoventilation; Z79.899 Other long term (current) drug therapy; Z79.1 Long term (current) use of non-steroidal anti-inflammatories (NSAID); Z79.891 Long term (current) use of opiate analgesic; Z88.2 Allergy status to sulfonamides
CPT/HCPCS: 43239; 88305; 99156; 99157; J2250

== ENCOUNTER → 2017-01-17 | Outpatient (REF) | payer BC ==
[~2017-01-17] MED LIST changes: -LIDOCAINE VISCOUS 2% SOLN 15ML UDC As Ordered ONE; -MIDAZOLAM INJ 2 MG/2 ML VIAL (J2250) As Ordered ONE; -NS 1,000 ML IV SCH
== END ==
LOC: M SFHCPLAZ 17:34
PROVIDERS: ATTEND Family Medicine
DX: Z12.4 Encounter for screening for malignant neoplasm of cervix (principal)

== ENCOUNTER → 2017-07-30 | Outpatient (REF) | payer BC ==
[2017-07-30 15:18] LABS: AMPHETAMINES URINE REFLEX NEGATIVE (NEGATIVE); BARBITURATES URINE REFLEX NEGATIVE (NEGATIVE); BENZODIAZEPINES URINE REFLEX NEGATIVE (NEGATIVE); COCAINE METABOLITE URINE REFLE NEGATIVE (NEGATIVE); METHADONE URINE REFLEX NEGATIVE (NEGATIVE); OPIATES URINE REFLEX NEGATIVE (NEGATIVE); PHENCYCLIDINE URINE REFLEX NEGATIVE (NEGATIVE)
[2017-07-30 15:19] LABS: CANNABINOIDS URINE REFLEX POSITIVE (NEGATIVE)
[2017-08-02 14:11] LABS: Cannabinoid Positive (.); GC Carboxy THC >300 ng/mL (Cutoff=10)
== END ==
LOC: M LAB REF 14:07
DX: F12.10 Cannabis abuse, uncomplicated (principal)
CPT/HCPCS: G0480

== ENCOUNTER 2017-08-20 15:51 | Emergency (ER) | payer BC ==
[2017-08-20] MEDS: ALBUTEROL SULFATE 2.5 MG/0.5 ML INH NEB SOLN INH (16:45)
[2017-08-20] MEDS: NS 1,000 ML IV (17:56)
[2017-08-20 18:00] LABS: BASO % 0.3 % (0.0-1.0); EOS % 0.1 % (0.0-3.0); HEMATOCRIT 40.6 % (36.0-47.0); HEMOGLOBIN 12.9 g/dl (12.0-16.0); IMMATURE GRANULOCYTE % 0.4 % (0-3.0); LYMPH # 2.1 10^3/uL (1.5-6.5); LYMPH % 22.7 % (24.0-44.0); MEAN CORPUSCULAR HGB CONC 31.8 g/dl (32.0-36.5); MEAN CORPUSCULAR VOLUME 75.6 fl (80.0-96.0); MONO # 0.8 10^3/uL (0.0-0.8); MONO % 8.9 % (0.0-5.0); NEUTROPHILS # 6.3 10^3/uL (1.8-7.7); NEUTROPHILS % 67.6 % (36.0-66.0); PLATELET COUNT, AUTOMATED 449 10^3/uL (150-450); RED BLOOD COUNT 5.37 10^6/uL (4.00-5.40); RED CELL DISTRIBUTION WIDTH 15.3 % (11.5-14.5); WHITE BLOOD COUNT 9.3 10^3/uL (4.0-10.0)
[2017-08-20 18:19] LABS: INR 1.07
[2017-08-20 18:20] LABS: PARTIAL THROMBOPLASTIN TIME 33.7 SECONDS (26.8-37.9)
[2017-08-20 18:22] LABS: D-DIMER QUANT 2172.5 ng/ml (<500)
[2017-08-20] MEDS: ONDANSETRON 4MG/2ML VIAL (J2405) IV (18:52)
[2017-08-20 18:54] LABS: ANION GAP 14 MEQ/L (8-16); BLOOD UREA NITROGEN 6 MG/DL (7-18); CALCIUM LEVEL 9.7 MG/DL (8.5-10.1); CARBON DIOXIDE LEVEL 21 MEQ/L (21-32); CHLORIDE LEVEL 103 MEQ/L (98-107); CREATININE FOR GFR 0.56 MG/DL (0.55-1.30); GLOMERULAR FILTRATION RATE > 60.0 (>60); GLUCOSE, FASTING 82 MG/DL (70-100); POTASSIUM SERUM 4.2 MEQ/L (3.5-5.1); SODIUM LEVEL 138 MEQ/L (136-145)
[2017-08-20 19:09] LABS: CK-MB VALUE MASS 1.4 NG/ML (0.0-3.6); CPK CREATINE PHOSPHOKINASE 125 U/L (26-192); MB/CK RELATIVE INDEX 1.12 (< OR =4); TROPONIN I < 0.02 NG/ML (< 0.10)
[2017-08-20] MEDS ORDERED: ISOVUE-370 76% 100ML VIAL (Q9967) As Ordered (19:12)
== END 2017-08-20 20:58 | disposition home or self-care (01) ==
LOC: M ED 15:51
DX: R06.02 Shortness of breath (principal); J45.909 Unspecified asthma, uncomplicated; Z98.84 Bariatric surgery status; Z79.899 Other long term (current) drug therapy; Z88.2 Allergy status to sulfonamides
CPT/HCPCS: J2405

== ENCOUNTER → 2017-09-04 | Outpatient (REF) | payer BC ==
[2017-09-04 12:48] LABS: ANION GAP 8 MEQ/L (8-16); BLOOD UREA NITROGEN 7 MG/DL (7-18); CALCIUM LEVEL 8.7 MG/DL (8.5-10.1); CARBON DIOXIDE LEVEL 28 MEQ/L (21-32); CHLORIDE LEVEL 107 MEQ/L (98-107); CREATININE FOR GFR 0.55 MG/DL (0.55-1.30); GLOMERULAR FILTRATION RATE > 60.0 (>60); GLUCOSE, FASTING 91 MG/DL (70-100); POTASSIUM SERUM 4.4 MEQ/L (3.5-5.1); SODIUM LEVEL 143 MEQ/L (136-145)
== END ==
LOC: M SFHCPLAZ 10:27
DX: E87.6 Hypokalemia (principal)

== ENCOUNTER → 2017-09-23 | Outpatient (REF) | payer BC ==
[2017-09-23 16:15] LABS: ALBUMIN 3.7 GM/DL (3.2-5.2); ALBUMIN/GLOBULIN RATIO 1.28 (1.00-1.93); ALKALINE PHOSPHATASE 55 U/L (45-117); ALT/SGPT 36 U/L (12-78); ANION GAP 7 MEQ/L (8-16); AST/SGOT 28 U/L (7-37); BILIRUBIN,TOTAL 0.3 MG/DL (0.2-1.0); BLOOD UREA NITROGEN 14 MG/DL (7-18); CALCIUM LEVEL 8.4 MG/DL (8.5-10.1); CARBON DIOXIDE LEVEL 29 MEQ/L (21-32); CHLORIDE LEVEL 107 MEQ/L (98-107); CREATININE FOR GFR 0.53 MG/DL (0.55-1.30); FERRITIN 8 NG/ML (8-252); GLOMERULAR FILTRATION RATE > 60.0 (>60); GLUCOSE, FASTING 81 MG/DL (70-100); IRON (FE) 28 UG/DL (50-170); MAGNESIUM LEVEL 1.9 MG/DL (1.8-2.4); PERCENT SATURATION 8.5 % (13.2-45.0); PHOSPHORUS LEVEL 3.4 MG/DL (2.5-4.9); POTASSIUM SERUM 3.9 MEQ/L (3.5-5.1); SODIUM LEVEL 143 MEQ/L (136-145); TOTAL 25(OH) VITAMIN D 22.9 NG/ML (30.0-100.0); TOTAL IRON BINDING CAPACITY 330 UG/DL (250-450); TOTAL PROTEIN 6.6 GM/DL (6.4-8.2); VITAMIN B12 LEVEL 648 PG/ML (247-911)
[2017-09-23 16:22] LABS: BASO % 0.3 % (0.0-1.0); HEMATOCRIT 36.4 % (36.0-47.0); HEMOGLOBIN 11.2 g/dl (12.0-16.0); IMMATURE GRANULOCYTE % 0.2 % (0-3.0); LYMPH # 2.2 10^3/uL (1.5-6.5); LYMPH % 37.7 % (24.0-44.0); MEAN CORPUSCULAR HEMOGLOBIN 24.6 pg (27.0-33.0); MEAN CORPUSCULAR HGB CONC 30.8 g/dl (32.0-36.5); MEAN CORPUSCULAR VOLUME 79.8 fl (80.0-96.0); MONO # 0.3 10^3/uL (0.0-0.8); MONO % 5.9 % (0.0-5.0); NEUTROPHILS # 3.2 10^3/uL (1.8-7.7); NEUTROPHILS % 55.9 % (36.0-66.0); PLATELET COUNT, AUTOMATED 264 10^3/uL (150-450); RED BLOOD COUNT 4.56 10^6/uL (4.00-5.40); RED CELL DISTRIBUTION WIDTH 15.9 % (11.5-14.5); WHITE BLOOD COUNT 5.8 10^3/uL (4.0-10.0)
[2017-09-23 16:23] LABS: ESTIMATED AVERAGE GLUCOSE 91 MG/DL (60-110); HEMOGLOBIN A1c 4.8 %
[2017-09-23 16:23] LABS: HEMATOCRIT 36.4 % (36.0-47.0)
[2017-09-26 12:42] LABS: PRETREATED FOLATE FOR RBCFOL 10.4 NG/ML
== END ==
LOC: M LABDRAWP 15:30
DX: K91.2 Postsurgical malabsorption, not elsewhere classified (principal); Z98.84 Bariatric surgery status; E55.9 Vitamin D deficiency, unspecified
CPT/HCPCS: 83550

== ENCOUNTER → 2017-12-02 | Outpatient (REF) | payer BC ==
[2017-12-02 14:29] LABS: HCG, SERUM QUANTITATIVE < 1.0 MIU/ML
== END ==
LOC: M SFHCPLAZ 11:18
DX: Z30.09 Encounter for other general counseling and advice on contraception (principal)
CPT/HCPCS: 84702

== ENCOUNTER → 2020-01-26 | Outpatient (REF) | payer BC ==
[~2020-01-26] MED LIST changes: +BENA25CA4 PO; +FAMO20TA PO; +LABE20TAB GT; +LOVE1INJ SC; +MULT1CHW26 PO; -OMEP40CA2 PO; +OMEP40CA97 PO; +ONDA-83 PO
[2020-01-26 17:04] LABS: HEMATOCRIT 41.1 % (36.0-47.0)
[2020-01-26 17:06] LABS: BASO % 0.3 % (0.0-1.0); HEMOGLOBIN 13.1 g/dl (12.0-15.5); LYMPH # 2.4 10^3/uL (1.5-5.0); LYMPH % 36.9 % (24.0-44.0); MEAN CORPUSCULAR VOLUME 84.5 fl (80.0-96.0); MONO # 0.4 10^3/uL (0.0-0.8); MONO % 6.7 % (0.0-5.0); NEUTROPHILS # 3.6 10^3/uL (1.5-8.5); NEUTROPHILS % 55.9 % (36.0-66.0); PLATELET COUNT, AUTOMATED 330 10^3/uL (150-450); RED BLOOD COUNT 4.85 10^6/uL (4.00-5.40); WHITE BLOOD COUNT 6.5 10^3/uL (4.0-10.0)
[2020-01-26 17:37] LABS: ALBUMIN 3.6 GM/DL (3.2-5.2); ALT/SGPT 19 U/L (12-78); BILIRUBIN,TOTAL 0.4 MG/DL (0.2-1.0); BLOOD UREA NITROGEN 14 MG/DL (7-18); CALCIUM LEVEL 9.1 MG/DL (8.5-10.1); CARBON DIOXIDE LEVEL 26 MEQ/L (21-32); CHLORIDE LEVEL 104 MEQ/L (98-107); CREATININE FOR GFR 0.76 MG/DL (0.55-1.30); FERRITIN 3 NG/ML (8-252); GLOMERULAR FILTRATION RATE > 60.0 (>60); GLUCOSE, FASTING 85 MG/DL (70-100); IRON (FE) 46 UG/DL (50-170); PHOSPHORUS LEVEL 3.6 MG/DL (2.5-4.9); POTASSIUM SERUM 4.4 MEQ/L (3.5-5.1); SODIUM LEVEL 137 MEQ/L (136-145); TOTAL 25(OH) VITAMIN D 20.7 NG/ML (30.0-100.0); TOTAL IRON BINDING CAPACITY 573 UG/DL (250-450); TOTAL PROTEIN 7.5 GM/DL (6.4-8.2); VITAMIN B12 LEVEL 590 PG/ML (247-911)
== END ==
LOC: M PLALAB 15:11
PROVIDERS: ATTEND Family Medicine
DX: K91.2 Postsurgical malabsorption, not elsewhere classified (principal); E55.9 Vitamin D deficiency, unspecified; Z98.84 Bariatric surgery status
CPT/HCPCS: 36415; 80053; 82306; 82607; 82728; 82747; 83550; 83735; 84100; 84443; 85025; 87624; G0123

== ENCOUNTER → 2020-05-30 | Outpatient (CLI) | payer SELFPAY | LOC: M LABSMTC 12:46 | PROVIDERS: ATTEND Pediatrics | DX: Z20.828 Contact with and (suspected) exposure to other viral communicable diseases (principal) ==

== ENCOUNTER → 2020-08-31 | Outpatient (REF) | payer BC ==
[2020-08-31 15:33] LABS: HEMATOCRIT 39.1 % (36.0-47.0); HEMOGLOBIN 11.8 g/dl (12.0-15.5); MEAN CORPUSCULAR HEMOGLOBIN 25.5 pg (27.0-33.0); MEAN CORPUSCULAR HGB CONC 30.2 g/dl (32.0-36.5); MEAN CORPUSCULAR VOLUME 84.6 fl (80.0-96.0); PLATELET COUNT, AUTOMATED 308 10^3/uL (150-450); RED BLOOD COUNT 4.62 10^6/uL (4.00-5.40); WHITE BLOOD COUNT 6.4 10^3/uL (4.0-10.0)
[2020-08-31 16:06] LABS: PERCENT SATURATION 9.9 % (13.2-45.0); THYROID STIMULATING HORMONE 0.909 uIU/ML (0.358-3.740)
[2020-08-31 16:27] LABS: TOTAL 25(OH) VITAMIN D 24.1 NG/ML (30.0-100.0)
== END ==
LOC: M SFHCPLAZ 12:30
PROVIDERS: ATTEND Family Medicine
DX: R53.83 Other fatigue (principal); E55.9 Vitamin D deficiency, unspecified

== ENCOUNTER 2020-09-27 02:46 | Emergency (ER) | payer BC ==
[~2020-09-27] VITALS: Ht 160 cm; Wt 106.5 kg
[2020-09-27 02:47] VITALS: BP 121/79
[2020-09-27] MEDS ORDERED: OMEP40CA97 PO (02:58)
[2020-09-27] MEDS ORDERED: BUSP1TAB PO (02:59)
[2020-09-27] MEDS ORDERED: ESCITALOPRAM PO (02:59)
[2020-09-27] MEDS ORDERED: CLEO300C2 PO (03:22)
[2020-09-27] MEDS ORDERED: CLINDAMYCIN 150MG CAPSULE PO ONE (03:25)
== END 2020-09-27 03:56 | disposition home or self-care (01) ==
LOC: M ED 02:46
DX: K08.9 Disorder of teeth and supporting structures, unspecified (principal); Z98.84 Bariatric surgery status; Z88.2 Allergy status to sulfonamides; Z79.899 Other long term (current) drug therapy

== ENCOUNTER 2020-10-09 22:36 | Emergency (ER) | payer BC ==
[~2020-10-09] VITALS: Ht 160 cm; Wt 107.4 kg
[~2020-10-09 22:36] MED LIST changes: +BUSP1TAB PO; +CLEO300C2 PO; +ESCITALOPRAM PO
[2020-10-10] MEDS ORDERED: KETOROLAC 30 MG/ML 1ML VIAL IM ONE (00:50)
[2020-10-10] MEDS ORDERED: AUGMENTIN 875 MG TAB PO ONE (00:50)
[2020-10-10] MEDS ORDERED: AMOX875T2 PO (00:55)
[2020-10-10 01:27] VITALS: BP 125/65
== END 2020-10-10 01:29 | disposition home or self-care (01) ==
LOC: M ED 22:36
DX: K08.89 Other specified disorders of teeth and supporting structures (principal); I10 Essential (primary) hypertension; J45.909 Unspecified asthma, uncomplicated; Z98.84 Bariatric surgery status; Z88.2 Allergy status to sulfonamides; Z79.899 Other long term (current) drug therapy
CPT/HCPCS: 96372; 99283; J1885

== ENCOUNTER → 2020-11-03 | Outpatient (REF) | payer BC ==
[~2020-11-03] MED LIST changes: +AMOX875T2 PO
[2020-11-03 14:08] LABS: APPEARANCE, URINE TURBID (CLEAR); BACTERIA, URINE AUTO NEGATIVE (NEGATIVE); BILIRUBIN, URINE AUTO NEGATIVE (NEGATIVE); BLOOD, URINE BLOOD NEGATIVE (NEGATIVE); COLOR, URINE AMBER (YELLOW); GLUCOSE, URINE (UA) AUTO NEGATIVE (NEGATIVE); KETONE, URINE AUTO TRACE mg/dL (NEGATIVE); LEUKOCYTE ESTERASE, URINE AUTO 1+ (NEGATIVE); MUCUS, URINE LARGE (NEGATIVE); NITRITE, URINE AUTO NEGATIVE (NEGATIVE); PROTEIN, URINE AUTO 1+ mg/dL (NEGATIVE); RBC, URINE AUTO 0 /HPF (0-3); SPECIFIC GRAVITY URINE AUTO 1.029 (1.002-1.035); SQUAMOUS EPITHELIAL CELL UR AU 12 /HPF (0-6); WBC, URINE AUTO 2 /HPF (0-3)
== END ==
LOC: M SFHCPLAZ 13:25
PROVIDERS: ATTEND Family Medicine
DX: R30.0 Dysuria (principal)

== ENCOUNTER → 2020-11-03 | Outpatient (REF) | LOC: M LABSMTC 09:35 | PROVIDERS: ATTEND Pediatrics | DX: Z11.52 Encounter for screening for COVID-19 (principal) ==

== ENCOUNTER 2020-11-12 02:27 | Emergency (ER) | payer BC ==
[~2020-11-12] VITALS: Ht 160 cm; Wt 103.2 kg
[2020-11-12] MEDS ORDERED: KETOROLAC 30 MG/ML 1ML VIAL IV ONE (05:05)
[2020-11-12 06:11] LABS: HEMATOCRIT 36.1 % (36.0-47.0); MEAN CORPUSCULAR HEMOGLOBIN 26.1 pg (27.0-33.0); MEAN CORPUSCULAR HGB CONC 30.5 g/dl (32.0-36.5); MEAN CORPUSCULAR VOLUME 85.7 fl (80.0-96.0); PLATELET COUNT, AUTOMATED 329 10^3/uL (150-450); RED BLOOD COUNT 4.21 10^6/uL (4.00-5.40); WHITE BLOOD COUNT 6.5 10^3/uL (4.0-10.0)
[2020-11-12 06:29] LABS: ALBUMIN 3.5 GM/DL (3.2-5.2); ALT/SGPT 74 U/L (12-78); BILIRUBIN,TOTAL 0.3 MG/DL (0.2-1.0); BLOOD UREA NITROGEN 15 MG/DL (7-18); CALCIUM LEVEL 8.4 MG/DL (8.5-10.1); CARBON DIOXIDE LEVEL 29 MEQ/L (21-32); CHLORIDE LEVEL 106 MEQ/L (98-107); CREATININE FOR GFR 0.56 MG/DL (0.55-1.30); GLOMERULAR FILTRATION RATE > 60.0 (>60); GLUCOSE, FASTING 102 MG/DL (70-100); POTASSIUM SERUM 3.8 MEQ/L (3.5-5.1); SODIUM LEVEL 140 MEQ/L (136-145); TOTAL PROTEIN 6.8 GM/DL (6.4-8.2)
[2020-11-12] MEDS ORDERED: ISOVUE-370 76% 100ML VIAL As Ordered ONE (06:31)
--- NOTE | 2020-11-12 07:34 | REPVR ---
PROCEDURE INFORMATION: Exam: CT Maxillofacial With Contrast Exam date and time: 11/12/2020 6:44 AM Age: 30 years old Clinical indication: Maxilla pain; Additional info: Eval for deep space infection right maxillary region TECHNIQUE: Imaging protocol: Computed tomography images of the face with intravenous contrast. Radiation optimization: All CT scans at this facility use at least one of these dose optimization techniques: automated exposure control; mA and/or kV adjustment per patient size (includes targeted exams where dose is matched to clinical indication); or iterative reconstruction. Contrast material: ISOVUE 370; Contrast volume: 75 ml; Contrast route: INTRAVENOUS (IV); COMPARISON: No relevant prior studies available. FINDINGS: Orbital cavity: The globes are intact bilaterally. The intraconal fat and extraocular muscles appear normal bilaterally. The orbital rims are intact. Bones/joints: There is no evidence of acute fracture. Paranasal sinuses: There is prominent mucoperiosteal thickening in the right maxillary sinus, especially toward the base. No fluid levels. Soft tissues: The soft tissues appear unremarkable. Submandibular/Parotid glands: The submandibular glands and the parotid glands are unremarkable and symmetric bilaterally. Lymph nodes: No lymphadenopathy is seen. Vasculature: The visualized vasculature appears unremarkable. Dental: There are a few dental caries. There is a particularly large caries at the left maxillary 1st premolar tooth with only a small residual portion of the tooth. There is an empty socket with soft tissue and gas at the right maxillary 2nd molar tooth, probably related to recent tooth extraction. Nasopharynx: The nasopharynx appears unremarkable. Oropharynx: There is mild hypertrophy of the bilateral palatine tonsils. There is no significant hyperenhancement. There are small tonsilliths in the left palatine tonsil. Other findings: The retropharyngeal tissues appear unremarkable. IMPRESSION: 1. Soft tissue and gas filling an empty socket at the right maxillary 2nd molar tooth, probably related to recent tooth extraction. No associated soft tissue collections or significant infiltration to indicate soft tissue infection or abscess. 2. Prominent mucoperiosteal thickening in the right maxillary sinus without a fluid level, consistent with chronic sinusitis, which may or may not be secondary to the adjacent dental disease. Electronically signed by: Helen Ram On 11/12/2020 07:34:16 AM
[2020-11-12 08:06] VITALS: BP 154/88
== END 2020-11-12 08:13 | disposition home or self-care (01) ==
LOC: M ED 02:27
DX: J32.0 Chronic maxillary sinusitis (principal); R10.9 Unspecified abdominal pain; Z98.84 Bariatric surgery status; J45.909 Unspecified asthma, uncomplicated; F33.9 Major depressive disorder, recurrent, unspecified; F41.9 Anxiety disorder, unspecified; Z79.899 Other long term (current) drug therapy
CPT/HCPCS: 70487; 80053; 81001; 85027; 96374; 99284; J1885; Q9967

== ENCOUNTER 2021-10-04 16:20 | Emergency (ER) | payer BC, SELFPAY ==
[~2021-10-04] VITALS: Ht 160 cm; Wt 105.1 kg
[~2021-10-04 16:20] MED LIST changes: +OMEP40CA4 PO; -OMEP40CA97 PO
[2021-10-04] MEDS ORDERED: AMPICILLIN SOD/SULBACTAM SOD 3 GM in D5W MINI-BAG PLUS 100 ML IV ONE (17:55)
[2021-10-04] MEDS ORDERED: dexameTHASONE 20MG/5ML VIAL (J1100 PER 1MG) IV ONE (17:55)
[2021-10-04] MEDS ORDERED: ACETAMINOPHEN 325 MG TAB PO ONE (18:00)
[2021-10-04 18:26] LABS: BASO % 0.1 % (0.0-1.0); HEMOGLOBIN 10.2 g/dl (12.0-15.5); LYMPH # 2.3 10^3/uL (1.5-5.0); LYMPH % 34.4 % (24.0-44.0); MEAN CORPUSCULAR HEMOGLOBIN 23.3 pg (27.0-33.0); MEAN CORPUSCULAR VOLUME 77.6 fl (80.0-96.0); MONO # 0.5 10^3/uL (0.0-0.8); NEUTROPHILS # 3.9 10^3/uL (1.5-8.5); NEUTROPHILS % 58.2 % (36.0-66.0); PLATELET COUNT, AUTOMATED 308 10^3/uL (150-450); RED BLOOD COUNT 4.38 10^6/uL (4.00-5.40); WHITE BLOOD COUNT 6.7 10^3/uL (4.0-10.0)
[2021-10-04] MEDS ORDERED: ISOVUE-370 76% 100ML VIAL As Ordered ONE (18:38)
[2021-10-04 18:47] LABS: ERYTHROCYTE SEDIMENTATION RATE 15 mm/hr (0-20)
[2021-10-04 18:50] LABS: ALBUMIN 3.8 GM/DL (3.2-5.2); BILIRUBIN,DIRECT 0.1 MG/DL (0.0-0.2); BILIRUBIN,TOTAL 0.2 MG/DL (0.2-1.0); C REACTIVE PROTEIN QUANTITATIV 0.45 MG/DL (0.00-0.30); TOTAL PROTEIN 6.9 GM/DL (6.4-8.2)
[2021-10-04] MEDS ORDERED: AMOX875T2 PO (19:48)
[2021-10-04 20:15] VITALS: BP 128/63
== END 2021-10-04 20:19 | disposition home or self-care (01) ==
LOC: M ED 16:20
DX: K04.7 Periapical abscess without sinus (principal); R22.0 Localized swelling, mass and lump, head; I10 Essential (primary) hypertension; K21.9 Gastro-esophageal reflux disease without esophagitis; J45.909 Unspecified asthma, uncomplicated; Z88.1 Allergy status to other antibiotic agents; Z88.2 Allergy status to sulfonamides; Z88.5 Allergy status to narcotic agent
CPT/HCPCS: 70487; 80047; 80076; 84702; 85025; 85652; 86140; 96365; 96375; 99283; J1100; Q9967

== ENCOUNTER 2022-12-24 03:40 | Emergency (ER) | payer BC, SELFPAY | END 2022-12-24 05:25 | disposition left against medical advice (07) | LOC: M ED 03:40 | DX: Z53.21 Procedure and treatment not carried out due to patient leaving prior to being seen by health care provider (principal) ==

== ENCOUNTER → 2022-12-25 | Outpatient (CLI) | payer BC ==
[2022-12-25 15:49] LABS: BASO % 0.5 % (0.0-1.0); EOS % 0.2 % (0.0-3.0); HEMATOCRIT 34.4 % (36.0-47.0); HEMOGLOBIN 9.8 g/dl (12.0-15.5); LYMPH # 2.3 10^3/uL (1.5-5.0); LYMPH % 36.4 % (24.0-44.0); MEAN CORPUSCULAR HEMOGLOBIN 21.1 pg (27.0-33.0); MEAN CORPUSCULAR HGB CONC 28.5 g/dl (32.0-36.5); MONO # 0.5 10^3/uL (0.0-0.8); MONO % 7.7 % (2.0-8.0); NEUTROPHILS # 3.5 10^3/uL (1.5-8.5); NEUTROPHILS % 54.9 % (36.0-66.0); PLATELET COUNT, AUTOMATED 370 10^3/uL (150-450); RED BLOOD COUNT 4.65 10^6/uL (4.00-5.40); WHITE BLOOD COUNT 6.3 10^3/uL (4.0-10.0)
[2022-12-25 15:59] LABS: HEMOGLOBIN A1c 4.9 % (4.0-6.0)
[2022-12-25 16:19] LABS: ALBUMIN 3.7 G/DL (3.2-5.2); ALKALINE PHOSPHATASE 48 U/L (46-116); ALT/SGPT 10 U/L (7.0-40); AST/SGOT 9 U/L (<34); BILIRUBIN,TOTAL 0.3 MG/DL (0.3-1.2); BLOOD UREA NITROGEN 15 MG/DL (9-23); CALCIUM LEVEL 9.1 MG/DL (8.5-10.1); CARBON DIOXIDE LEVEL 27 MMOL/L (20-31); CHLORIDE LEVEL 106 MMOL/L (98-107); CHOLESTEROL LEVEL 228 MG/DL (<200); CHOLESTEROL RISK RATIO 3.41 (<5); CREATININE FOR GFR 0.63 MG/DL (0.55-1.30); GLOMERULAR FILTRATION RATE > 60.0 (>60); GLUCOSE, FASTING 92 MG/DL (60-100); HDL CHOLESTEROL 66.7 MG/DL (>40); IRON (FE) 14 UG/DL (50-170); LDL CHOLESTEROL 113.5 MG/DL (<100); NON-HDL-C 161.3 MG/DL; POTASSIUM SERUM 4.5 MMOL/L (3.5-5.1); PTH INTACT 60.4 PG/ML (18.5-88.0); SODIUM LEVEL 138 MMOL/L (136-145); TRIGLYCERIDES LEVEL 239 MG/DL (<150); VITAMIN B12 LEVEL 228 PG/ML (211-911)
[2022-12-25 16:20] LABS: TOTAL 25(OH) VITAMIN D 12.2 NG/ML (20.0-100.0)
[2022-12-25 16:21] LABS: FERRITIN 1.4 NG/ML (7.3-270.7); FREE T4 0.82 NG/DL (0.89-1.76); THYROID STIMULATING HORMONE 2.407 uIU/ML (0.55-4.78)
== END ==
LOC: M PLALAB 14:33
PROVIDERS: ATTEND Physician Assistant Medical
DX: Z98.84 Bariatric surgery status (principal); Z13.220 Encounter for screening for lipoid disorders; Z13.1 Encounter for screening for diabetes mellitus

== ENCOUNTER → 2022-12-26 | Outpatient (REF) | payer BC | LOC: M SFHCPLAZ 18:28 | PROVIDERS: ATTEND Physician Assistant Medical | DX: Z53.9 Procedure and treatment not carried out, unspecified reason (principal); E53.8 Deficiency of other specified B group vitamins ==

== ENCOUNTER → 2023-06-09 | Outpatient (CLI) | payer BC ==
[2023-06-09 17:52] LABS: IRON (FE) 12 UG/DL (50-170)
[2023-06-09 17:54] LABS: FERRITIN < 0.9 NG/ML (7.3-270.7)
[2023-06-09 17:57] LABS: BASO % 0.6 % (0.0-1.0); EOS % 0.1 % (0.0-3.0); HEMATOCRIT 32.4 % (36.0-47.0); HEMOGLOBIN 9.3 g/dl (12.0-15.5); LYMPH # 2.2 10^3/uL (1.5-5.0); LYMPH % 32.5 % (24.0-44.0); MEAN CORPUSCULAR HEMOGLOBIN 21.6 pg (27.0-33.0); MEAN CORPUSCULAR HGB CONC 28.7 g/dl (32.0-36.5); MEAN CORPUSCULAR VOLUME 75.2 fl (80.0-96.0); MONO # 0.5 10^3/uL (0.0-0.8); MONO % 7.5 % (2.0-8.0); NEUTROPHILS % 59.2 % (36.0-66.0); PLATELET COUNT, AUTOMATED 322 10^3/uL (150-450); RED BLOOD COUNT 4.31 10^6/uL (4.00-5.40); WHITE BLOOD COUNT 6.7 10^3/uL (4.0-10.0)
== END ==
LOC: M PLALAB 15:10
PROVIDERS: ATTEND Physician Assistant Medical
DX: D50.9 Iron deficiency anemia, unspecified (principal)

== ENCOUNTER 2023-06-12 22:37 | Emergency (ER) | payer BC ==
[~2023-06-12] VITALS: Ht 160 cm; Wt 107.8 kg
[2023-06-12] MEDS ORDERED: FLUT1BLS4 (22:47)
[2023-06-12] MEDS ORDERED: HYDR-643 (22:47)
[2023-06-12] MEDS ORDERED: ALBU8.5H (22:47)
[2023-06-12] MEDS ORDERED: LORY1TAB2 (22:47)
[2023-06-13 02:30] LABS: BASO % 0.5 % (0.0-1.0); EOS % 0.1 % (0.0-3.0); HEMATOCRIT 32.3 % (36.0-47.0); HEMOGLOBIN 9.5 g/dl (12.0-15.5); LYMPH % 40.7 % (24.0-44.0); MEAN CORPUSCULAR HEMOGLOBIN 21.6 pg (27.0-33.0); MEAN CORPUSCULAR HGB CONC 29.4 g/dl (32.0-36.5); MEAN CORPUSCULAR VOLUME 73.6 fl (80.0-96.0); MONO # 0.5 10^3/uL (0.0-0.8); MONO % 6.3 % (2.0-8.0); NEUTROPHILS # 3.8 10^3/uL (1.5-8.5); NEUTROPHILS % 52.1 % (36.0-66.0); PLATELET COUNT, AUTOMATED 312 10^3/uL (150-450); RED BLOOD COUNT 4.39 10^6/uL (4.00-5.40); WHITE BLOOD COUNT 7.3 10^3/uL (4.0-10.0)
[2023-06-13 02:46] LABS: INR 1.14; PROTHROMBIN TIME 14.3 SECONDS (12.5-14.5)
[2023-06-13 02:47] LABS: PARTIAL THROMBOPLASTIN TIME 28.6 SECONDS (24.8-34.2)
[2023-06-13 02:51] LABS: CK-MB VALUE MASS < 1.0 NG/ML (<3.6)
[2023-06-13 02:52] LABS: CPK CREATINE PHOSPHOKINASE 142 U/L (34-145); CPK CREATINE PHOSPHOKINASE 156 U/L (34-145)
[2023-06-13 02:53] LABS: ALBUMIN 3.5 G/DL (3.2-5.2); ALKALINE PHOSPHATASE 47 U/L (46-116); ALT/SGPT < 9 U/L (7.0-40); AST/SGOT 15 U/L (<34); BILIRUBIN,DIRECT < 0.1 MG/DL (<0.4); BILIRUBIN,TOTAL 0.3 MG/DL (0.3-1.2); BLOOD UREA NITROGEN 14 MG/DL (9-23); CALCIUM LEVEL 8.8 MG/DL (8.5-10.1); CARBON DIOXIDE LEVEL 25 MMOL/L (20-31); CHLORIDE LEVEL 103 MMOL/L (98-107); CK-MB VALUE MASS < 1.0 NG/ML (<3.6); CREATININE FOR GFR 0.61 MG/DL (0.55-1.30); GLOMERULAR FILTRATION RATE > 60.0 (>60); GLUCOSE, FASTING 93 MG/DL (60-100); MAGNESIUM LEVEL 1.8 MG/DL (1.8-2.4); MB/CK RELATIVE INDEX 0.64 (< OR =4); POTASSIUM SERUM 3.9 MMOL/L (3.5-5.1); SODIUM LEVEL 135 MMOL/L (136-145)
[2023-06-13 02:55] LABS: THYROID STIMULATING HORMONE 7.462 uIU/ML (0.55-4.78)
[2023-06-13 05:02] LABS: HCG, SERUM QUALITATIVE NEGATIVE (NEGATIVE)
[2023-06-13 05:06] LABS: FREE T4 0.85 NG/DL (0.89-1.76)
[2023-06-13 05:12] LABS: AMPHETAMINES LEVEL URINE NEGATIVE (NEGATIVE); BARBITURATES URINE NEGATIVE (NEGATIVE); BENZODIAZEPINES URINE NEGATIVE (NEGATIVE); COCAINE METABOLITE URINE NEGATIVE (NEGATIVE); METHADONE URINE NEGATIVE (NEGATIVE); PHENCYCLIDINE URINE NEGATIVE (NEGATIVE)
[2023-06-13 05:15] VITALS: BP 134/65
[2023-06-13 05:29] LABS: CANNABINOIDS URINE POSITIVE (NEGATIVE); OPIATES URINE POSITIVE (NEGATIVE)
[2023-06-13 05:29] LABS: ETHYL ALCOHOL (ETHANOL) < 0.003 % (0.000-0.010)
[2023-06-13 05:42] LABS: D-DIMER QUANT 0.27 ug/mL (<0.5)
[2023-06-13 06:02] VITALS: TEMP 97.8; O2SAT 99
[2023-06-13] MEDS ORDERED: HOLTER MONITOR XX ×2 (06:08→06:12)
== END 2023-06-13 06:20 | disposition home or self-care (01) ==
LOC: M ED 22:37
DX: R55 Syncope and collapse (principal); R00.1 Bradycardia, unspecified; R53.83 Other fatigue; D64.9 Anemia, unspecified; J45.909 Unspecified asthma, uncomplicated; K21.9 Gastro-esophageal reflux disease without esophagitis; F41.9 Anxiety disorder, unspecified; L40.9 Psoriasis, unspecified; E66.9 Obesity, unspecified; Z98.84 Bariatric surgery status; Z88.8 Allergy status to other drugs, medicaments and biological substances; Z88.2 Allergy status to sulfonamides; Z88.5 Allergy status to narcotic agent; Z79.899 Other long term (current) drug therapy

== ENCOUNTER 2023-06-19 10:40 | Outpatient (CLI) | payer BC ==
[~2023-06-19] VITALS: Ht 160 cm; Wt 109.0 kg
[~2023-06-19 10:40] MED LIST changes: +ALBU8.5H; +ALBUTEROL SULFATE 2.5MG/0.5ML INH NEB SOLN INH PRN; +EPINEPHrine INJ 1 MG/ML 1ML AMP IM PRN; +FLUT1BLS4; +HOLTER MONITOR XX; +HYDR-643; +LORY1TAB2; +diphenhydrAMINE 50MG/ML VIAL IV PRN; +methylPREDNISolone 125MG 2ML VIAL IV PRN
[2023-06-19] MEDS ORDERED: ACETAMINOPHEN TAB 650MG DOSE (2X325MG) PO ONE (11:00)
[2023-06-19] MEDS ORDERED: FERRIC CARBOXYMALTOSE INJ 750 MG in NS 250 ML (>50kg) IV ONE ×3 (11:00)
[2023-06-19] MEDS ORDERED: NS 1,000 ML IV SCH (11:00)
[2023-06-19] MEDS ORDERED: diphenhydrAMINE 25MG CAP PO ONE (11:00)
[2023-06-19 11:01] VITALS: BP 144/82; O2SAT 96
[2023-06-19 12:15] VITALS: BP 133/79; O2SAT 100
[2023-06-19 12:40] VITALS: BP 128/78; O2SAT 100
== END 2023-06-19 12:40 | disposition home or self-care (01) ==
LOC: M INFU 10:40
PROVIDERS: ATTEND Physician Assistant Medical
DX: D50.9 Iron deficiency anemia, unspecified (principal); Z88.2 Allergy status to sulfonamides; Z88.5 Allergy status to narcotic agent; Z88.6 Allergy status to analgesic agent
CPT/HCPCS: 96365; 96366; J1439

== ENCOUNTER → 2023-06-30 | Outpatient (CLI) | payer BC ==
[~2023-06-30] MED LIST changes: -ALBUTEROL SULFATE 2.5MG/0.5ML INH NEB SOLN INH PRN; -EPINEPHrine INJ 1 MG/ML 1ML AMP IM PRN; -diphenhydrAMINE 50MG/ML VIAL IV PRN; -methylPREDNISolone 125MG 2ML VIAL IV PRN
[2023-06-30 15:01] LABS: BASO % 0.6 % (0.0-1.0); EOS % 0.2 % (0.0-3.0); HEMATOCRIT 36.7 % (36.0-47.0); HEMOGLOBIN 10.7 g/dl (12.0-15.5); LYMPH # 2.4 10^3/uL (1.5-5.0); LYMPH % 46.4 % (24.0-44.0); MEAN CORPUSCULAR HEMOGLOBIN 23.2 pg (27.0-33.0); MEAN CORPUSCULAR HGB CONC 29.2 g/dl (32.0-36.5); MEAN CORPUSCULAR VOLUME 79.6 fl (80.0-96.0); MONO # 0.4 10^3/uL (0.0-0.8); MONO % 6.8 % (2.0-8.0); NEUTROPHILS # 2.4 10^3/uL (1.5-8.5); NEUTROPHILS % 45.8 % (36.0-66.0); PLATELET COUNT, AUTOMATED 295 10^3/uL (150-450); RED BLOOD COUNT 4.61 10^6/uL (4.00-5.40); WHITE BLOOD COUNT 5.2 10^3/uL (4.0-10.0)
[2023-06-30 15:04] LABS: ALBUMIN 3.3 G/DL (3.2-5.2); ALKALINE PHOSPHATASE 45 U/L (46-116); ALT/SGPT 13 U/L (7.0-40); AST/SGOT 18 U/L (<34); BILIRUBIN,TOTAL 0.3 MG/DL (0.3-1.2); BLOOD UREA NITROGEN 12 MG/DL (9-23); CALCIUM LEVEL 8.1 MG/DL (8.5-10.1); CARBON DIOXIDE LEVEL 27 MMOL/L (20-31); CHLORIDE LEVEL 106 MMOL/L (98-107); CHOLESTEROL LEVEL 212 MG/DL (<200); CHOLESTEROL RISK RATIO 3.01 (<5); CREATININE FOR GFR 0.54 MG/DL (0.55-1.30); GLOMERULAR FILTRATION RATE > 60.0 (>60); GLUCOSE, FASTING 83 MG/DL (60-100); HDL CHOLESTEROL 70.3 MG/DL (>40); LDL CHOLESTEROL 115.1 MG/DL (<100); NON-HDL-C 141.7 MG/DL; POTASSIUM SERUM 4.4 MMOL/L (3.5-5.1); PTH INTACT 80.7 PG/ML (18.5-88.0); SODIUM LEVEL 138 MMOL/L (136-145); TOTAL PROTEIN 6.1 G/DL (5.7-8.2); TRIGLYCERIDES LEVEL 133 MG/DL (<150)
[2023-06-30 15:07] LABS: VITAMIN B12 LEVEL 221 PG/ML (211-911)
[2023-06-30 15:08] LABS: FERRITIN 150.8 NG/ML (7.3-270.7); TOTAL 25(OH) VITAMIN D 21.8 NG/ML (20.0-100.0)
[2023-06-30 15:21] LABS: HEMOGLOBIN A1c 4.5 % (4.0-6.0)
== END ==
LOC: M PLALAB 09:50
PROVIDERS: ATTEND Physician Assistant Medical
DX: D50.9 Iron deficiency anemia, unspecified (principal); K91.2 Postsurgical malabsorption, not elsewhere classified; E55.9 Vitamin D deficiency, unspecified; E53.8 Deficiency of other specified B group vitamins; Z13.1 Encounter for screening for diabetes mellitus; Z13.220 Encounter for screening for lipoid disorders

== ENCOUNTER 2023-07-03 11:00 | Outpatient (CLI) | payer BC ==
[~2023-07-03] VITALS: Ht 160 cm; Wt 109.0 kg
[2023-07-03 11:00] VITALS: BP 175/90; O2SAT 99
[~2023-07-03 11:00] MED LIST changes: +ACETAMINOPHEN TAB 650MG DOSE (2X325MG) PO ONE; +ALBUTEROL SULFATE 2.5MG/0.5ML INH NEB SOLN INH PRN; +EPINEPHrine INJ 1 MG/ML 1ML AMP IM PRN; +FERRIC CARBOXYMALTOSE INJ 750 MG in NS 250 ML (>50kg) IV ONE; +NS 1,000 ML IV SCH; +diphenhydrAMINE 25MG CAP PO ONE; +diphenhydrAMINE 50MG/ML VIAL IV PRN; +methylPREDNISolone 125MG 2ML VIAL IV PRN
[2023-07-03 12:10] VITALS: BP 163/84; O2SAT 99
== END 2023-07-03 12:20 | disposition home or self-care (01) ==
LOC: M INFU 11:00
PROVIDERS: ATTEND Physician Assistant Medical
DX: D50.9 Iron deficiency anemia, unspecified (principal); Z88.2 Allergy status to sulfonamides; Z88.5 Allergy status to narcotic agent; Z88.6 Allergy status to analgesic agent
CPT/HCPCS: 96365; J1439

== ENCOUNTER → 2023-08-07 | Outpatient (CLI) | payer BC ==
[~2023-08-07] MED LIST changes: -ACETAMINOPHEN TAB 650MG DOSE (2X325MG) PO ONE; -ALBUTEROL SULFATE 2.5MG/0.5ML INH NEB SOLN INH PRN; -EPINEPHrine INJ 1 MG/ML 1ML AMP IM PRN; -FERRIC CARBOXYMALTOSE INJ 750 MG in NS 250 ML (>50kg) IV ONE; -NS 1,000 ML IV SCH; -diphenhydrAMINE 25MG CAP PO ONE; -diphenhydrAMINE 50MG/ML VIAL IV PRN; -methylPREDNISolone 125MG 2ML VIAL IV PRN
[2023-08-07 13:54] LABS: BASO % 0.5 % (0.0-1.0); EOS % 0.2 % (0.0-3.0); HEMATOCRIT 41.9 % (36.0-47.0); HEMOGLOBIN 13.2 g/dl (12.0-15.5); LYMPH # 2.8 10^3/uL (1.5-5.0); LYMPH % 49.6 % (24.0-44.0); MEAN CORPUSCULAR HEMOGLOBIN 26.9 pg (27.0-33.0); MEAN CORPUSCULAR HGB CONC 31.5 g/dl (32.0-36.5); MEAN CORPUSCULAR VOLUME 85.5 fl (80.0-96.0); MONO # 0.4 10^3/uL (0.0-0.8); MONO % 7.5 % (2.0-8.0); NEUTROPHILS # 2.4 10^3/uL (1.5-8.5); NEUTROPHILS % 42.2 % (36.0-66.0); PLATELET COUNT, AUTOMATED 227 10^3/uL (150-450); WHITE BLOOD COUNT 5.7 10^3/uL (4.0-10.0)
[2023-08-07 13:56] LABS: CALCIUM LEVEL 8.7 MG/DL (8.5-10.1)
[2023-08-07 13:59] LABS: TOTAL 25(OH) VITAMIN D 28.8 NG/ML (20.0-100.0)
[2023-08-07 14:00] LABS: PTH INTACT 45.8 PG/ML (18.5-88.0)
== END ==
LOC: M PLALAB 11:02
PROVIDERS: ATTEND Physician Assistant Medical
DX: D50.9 Iron deficiency anemia, unspecified (principal); E53.8 Deficiency of other specified B group vitamins; E55.9 Vitamin D deficiency, unspecified

== ENCOUNTER 2023-08-28 10:30 | Outpatient (CLI) | payer BC ==
[~2023-08-28] VITALS: Ht 160 cm; Wt 106.8 kg
[~2023-08-28 10:30] MED LIST changes: +ALBUTEROL SULFATE 2.5MG/0.5ML INH NEB SOLN INH PRN; +EPINEPHrine INJ 1 MG/ML 1ML AMP IM PRN; +NS 1,000 ML IV SCH; +diphenhydrAMINE 50MG/ML VIAL IV PRN; +methylPREDNISolone 125MG 2ML VIAL IV PRN
[2023-08-28 10:58] VITALS: BP 172/91; O2SAT 96
[2023-08-28] MEDS: ACETAMINOPHEN 650MG PO PRIOR TO INFUSION PO ONE (11:07)
[2023-08-28] MEDS: IRON SUCROSE 250 MG in NS 237.5 ML IV ONE (11:07)
[2023-08-28] MEDS: diphenhydrAMINE 25MG PO PRIOR TO INFUSION PO ONE (11:07)
[2023-08-28 12:29] VITALS: BP 148/81; O2SAT 98
== END 2023-09-02 12:25 ==
LOC: M INFU 10:30
PROVIDERS: ATTEND Physician Assistant Medical
DX: D50.9 Iron deficiency anemia, unspecified (principal); Z88.2 Allergy status to sulfonamides; Z88.5 Allergy status to narcotic agent; Z88.6 Allergy status to analgesic agent
CPT/HCPCS: 96365; J1756

== ENCOUNTER → 2023-11-06 | Outpatient (CLI) | payer BC ==
[~2023-11-06] MED LIST changes: -ALBUTEROL SULFATE 2.5MG/0.5ML INH NEB SOLN INH PRN; -EPINEPHrine INJ 1 MG/ML 1ML AMP IM PRN; -NS 1,000 ML IV SCH; -diphenhydrAMINE 50MG/ML VIAL IV PRN; -methylPREDNISolone 125MG 2ML VIAL IV PRN
[2023-11-06 13:39] LABS: BASO % 0.6 % (0.0-1.0); EOS % 0.2 % (0.0-3.0); HEMATOCRIT 41.7 % (36.0-47.0); HEMOGLOBIN 13.7 g/dl (12.0-15.5); LYMPH # 3.2 10^3/uL (1.5-5.0); LYMPH % 48.2 % (24.0-44.0); MEAN CORPUSCULAR HEMOGLOBIN 30.9 pg (27.0-33.0); MEAN CORPUSCULAR HGB CONC 32.9 g/dl (32.0-36.5); MEAN CORPUSCULAR VOLUME 93.9 fl (80.0-96.0); MONO # 0.4 10^3/uL (0.0-0.8); MONO % 5.8 % (2.0-8.0); PLATELET COUNT, AUTOMATED 274 10^3/uL (150-450); RED BLOOD COUNT 4.44 10^6/uL (4.00-5.40); WHITE BLOOD COUNT 6.6 10^3/uL (4.0-10.0)
[2023-11-06 13:43] LABS: ALBUMIN 3.8 G/DL (3.2-5.2); ALKALINE PHOSPHATASE 52 U/L (46-116); ALT/SGPT 15 U/L (7.0-40); AST/SGOT 13 U/L (<34); BILIRUBIN,TOTAL 0.3 MG/DL (0.3-1.2); BLOOD UREA NITROGEN 15 MG/DL (9-23); CALCIUM LEVEL 9.5 MG/DL (8.5-10.1); CARBON DIOXIDE LEVEL 30 MMOL/L (20-31); CHLORIDE LEVEL 103 MMOL/L (98-107); CREATININE FOR GFR 0.61 MG/DL (0.55-1.30); FERRITIN 68.5 NG/ML (7.3-270.7); FREE T4 0.98 NG/DL (0.89-1.76); GLOMERULAR FILTRATION RATE > 60.0 (>60); GLUCOSE, FASTING 81 MG/DL (60-100); POTASSIUM SERUM 4.2 MMOL/L (3.5-5.1); PTH INTACT 75.6 PG/ML (18.5-88.0); SODIUM LEVEL 137 MMOL/L (136-145); THYROID STIMULATING HORMONE 2.346 uIU/ML (0.55-4.78); TOTAL 25(OH) VITAMIN D 30.2 NG/ML (20.0-100.0); VITAMIN B12 LEVEL 412 PG/ML (211-911)
== END ==
LOC: M PLALAB 11:01
PROVIDERS: ATTEND Physician Assistant Medical
DX: Z00.00 Encounter for general adult medical examination without abnormal findings (principal); D50.9 Iron deficiency anemia, unspecified; E53.8 Deficiency of other specified B group vitamins

== ENCOUNTER → 2023-11-15 | Outpatient (REF) | payer BC | LOC: M LAB REF 18:12 | PROVIDERS: ATTEND Physician Assistant | DX: J02.9 Acute pharyngitis, unspecified (principal) ==

== ENCOUNTER → 2024-08-18 | Outpatient (CLI) | payer OTHER ==
[2024-08-18 16:10] LABS: BASO % 0.7 % (0.0-1.0); EOS # 0.1 10^3/uL (0.0-0.5); EOS % 2.1 % (0.0-3.0); HEMATOCRIT 42.4 % (36.0-47.0); HEMOGLOBIN 13.6 g/dl (12.0-15.5); LYMPH # 2.3 10^3/uL (1.5-5.0); LYMPH % 36.9 % (24.0-44.0); MEAN CORPUSCULAR HEMOGLOBIN 29.8 pg (27.0-33.0); MEAN CORPUSCULAR HGB CONC 32.1 g/dl (32.0-36.5); MONO # 0.4 10^3/uL (0.0-0.8); MONO % 5.9 % (2.0-8.0); NEUTROPHILS # 3.3 10^3/uL (1.5-8.5); NEUTROPHILS % 54.1 % (36.0-66.0); PLATELET COUNT, AUTOMATED 283 10^3/uL (150-450); RED BLOOD COUNT 4.56 10^6/uL (4.00-5.40); WHITE BLOOD COUNT 6.1 10^3/uL (4.0-10.0)
[2024-08-18 16:15] LABS: IRON (FE) 57 UG/DL (50-170)
[2024-08-18 16:16] LABS: FERRITIN 46.2 NG/ML (7.3-270.7); THYROID STIMULATING HORMONE 1.168 uIU/ML (0.55-4.78)
[2024-08-18 16:17] LABS: TOTAL 25(OH) VITAMIN D 22.7 NG/ML (20.0-100.0); VITAMIN B12 LEVEL 366 PG/ML (211-911)
[2024-08-18 16:34] LABS: ALBUMIN 3.6 G/DL (3.2-5.2); ALKALINE PHOSPHATASE 54 U/L (35-104); ALT/SGPT 13 U/L (7.0-40); AST/SGOT 15 U/L (<34); BILIRUBIN,TOTAL 0.3 MG/DL (0.3-1.2); BLOOD UREA NITROGEN 11 MG/DL (9-23); CALCIUM LEVEL 9.1 MG/DL (8.5-10.1); CARBON DIOXIDE LEVEL 28 MMOL/L (20-31); CHLORIDE LEVEL 106 MMOL/L (98-107); CHOLESTEROL LEVEL 221 MG/DL (<200); CHOLESTEROL RISK RATIO 3.22 (<5); CREATININE FOR GFR 0.53 MG/DL (0.55-1.30); GLOMERULAR FILTRATION RATE > 60.0 (>60); GLUCOSE, FASTING 86 MG/DL (60-100); HDL CHOLESTEROL 68.6 MG/DL (>40); LDL CHOLESTEROL 105.8 MG/DL (<100); NON-HDL-C 152.4 MG/DL; POTASSIUM SERUM 4.8 MMOL/L (3.5-5.1); SODIUM LEVEL 138 MMOL/L (136-145); TOTAL PROTEIN 6.9 G/DL (5.7-8.2); TRIGLYCERIDES LEVEL 233 MG/DL (<150)
[2024-08-18 16:48] LABS: HEMOGLOBIN A1c 4.6 % (4.0-6.0)
== END ==
LOC: M PLALAB 11:34
PROVIDERS: ATTEND Physician Assistant Medical
DX: K91.2 Postsurgical malabsorption, not elsewhere classified (principal); E66.01 Morbid (severe) obesity due to excess calories; Z13.220 Encounter for screening for lipoid disorders; Z98.84 Bariatric surgery status; E55.9 Vitamin D deficiency, unspecified; D50.9 Iron deficiency anemia, unspecified